=== PATIENT | female | born 1960 | race Caucasian/White ===

== ENCOUNTER → 2016-09-30 | Outpatient (CLI) | payer BC ==
[2016-09-30 17:50] LABS: Appearance,CSF Clear
[2016-10-01 14:58] LABS: Immunoglobulin G 861 mg/dL (700 - 1600)
[2016-10-03 16:23] LABS: Lyme Specimen Source Not Provided
== END | disposition home or self-care (01) ==
LOC: LABWHC1 13:20
PROVIDERS: ATTEND Psychiatry & Neurology Pain Medicine
DX: R90.82 White matter disease, unspecified (principal); M62.81 Muscle weakness (generalized)
CPT/HCPCS: 36415; 82040; 82042; 82784; 83873; 83916; 84157; 87476; 88108; 89050

== ENCOUNTER → 2016-10-22 | Outpatient (CLI) | payer BC ==
--- NOTE | 2016-10-22 19:21 | CT ---
EXAMINATION TYPE: CT lumbar spine wo con DATE OF EXAM: 10/22/2016 7:11 PM COMPARISON: NONE HISTORY: Severe low back pain and cramping CT DLP: 946 mGycm Automated exposure control for dose reduction was used. Unenhanced CT of the lumbar spine was performed. Bone and soft tissue window settings are submitted as well as coronal and sagittal reconstructions. Vertebra have normal alignment. Disc spaces are fairly normal. There is mild spurring anteriorly thro ughout the lumbar spine. There is no paraspinal mass. Posterior elements are intact. The sacroiliac j oints appear normal. I see no bony destructive process. There is no sign of spinal stenosis. There is a small posterior disc bulge at L5-S1. IMPRESSION: Mild degenerative hypertrophic changes without significant disc space narrowing. Small posterior L5-S 1 disc bulge. No fracture. No spinal stenosis.
== END | disposition home or self-care (01) ==
LOC: RADCTMAIN 18:47
PROVIDERS: ATTEND Family Medicine
DX: M51.27 Other intervertebral disc displacement, lumbosacral region (principal); M47.816 Spondylosis without myelopathy or radiculopathy, lumbar region
CPT/HCPCS: 72131

== ENCOUNTER → 2016-12-03 | Outpatient (CLI) | payer BC ==
[2016-12-03 19:55] LABS: Blood Urea Nitrogen 17 mg/dL (7-17); Non-African American GFR(MDRD) 58 (>60 ml/min/1.73 sqM)
--- NOTE | 2016-12-03 22:28 | MR ---
EXAMINATION TYPE: MR cspine/tspine wo/w con DATE OF EXAM: 12/03/2016 COMPARISON: NONE HISTORY: Known diagnosis of multiple sclerosis and white matter changes per order. Bulging disc per p atient. TECHNIQUE: Multiplanar, multisequence images of the cervical and thoracic spine are performed without and with I V contrast, utilizing 15 mL intravenous MultiHance . Demyelinating disease protocol with additional P D sagittal sequence of cervical spine acquired. FINDINGS: C-SPINE: Sagittal images of the cervical spine show the craniocervical junction to appear within normal limits . The cervical and upper thoracic spinal cord is normal in course, caliber, and signal. Vertebral a lignment is anatomic. The vertebral body and intravertebral disk heights are normal. No large kitchen helper ior disc herniations are seen on sagittal images. No significant spurring is present. The bone marrow signal intensity is within normal limits. No abnormal postcontrast enhancement is noted. Axial images show the C2-C3, C3-C4, C4-C5 levels all to appear within normal limits. Axial images at C5-C6 level show broad-based posterior disc protrusion with uncovertebral facet degen erative changes bilaterally. There is effacement of the anterior thecal sac. There is mild to moderat e left and mild right-sided neural foraminal narrowing at this level identified. Axial images at C6-C7 level and C7-T1 level are within normal limits. IMPRESSION: No evidence of demyelinating disease involvement in the cervical spine. Some degenerative change C5-C6 level otherwise unremarkable study T-SPINE: FINDINGS: Spinal cord shows normal caliber and signal as it courses the thoracic spine. Vertebral b germania heights are satisfactory. Exaggerated thoracic kyphosis is present. Disc space heights are fairly well-maintained. No large posterior disc herniations are seen on sagittal images. There is mild to m oderate multilevel anterior spurring most prominent in the mid thoracic spine. Bone marrow signal int ensity is maintained. No abnormal postcontrast enhancement is seen. Review of the axial images shows no significant spinal canal stenosis or neural foraminal narrowing a t any thoracic level. There is slight prominence of central spinal canal or small syrinx in lower th oracic spine from roughly T10-T11 disc space level on axial image 9 to superior T12 level on axial im age 4. There is 8 mm nodular thickening crux left adrenal gland on axial image 2. A few enhancing tho racolumbar nerve roots are identified in the lower axial images, nonspecific finding. IMPRESSION: No evidence of demyelinating disease involvement in the thoracic spine. There is short se gment central canal prominence or small syrinx in the lower thoracic spine. There is mild to moderat e multilevel anterior spurring in the mid thoracic spine with exaggerated thoracic kyphosis noted.
== END | disposition home or self-care (01) ==
LOC: RADMRIMAIN 19:17
PROVIDERS: ATTEND Psychiatry & Neurology Pain Medicine
DX: M47.812 Spondylosis without myelopathy or radiculopathy, cervical region (principal); M40.294 Other kyphosis, thoracic region; M46.04 Spinal enthesopathy, thoracic region; R90.82 White matter disease, unspecified
CPT/HCPCS: 82565; 84520; 72156; 72157; A9577

== ENCOUNTER → 2017-08-12 | Outpatient (CLI) | payer BC ==
--- NOTE | 2017-08-16 09:01 | MM ---
Reason for exam: screening (asymptomatic). Last mammogram was performed 1 year and 5 months ago. History: Patient is postmenopausal. Family history of breast cancer in maternal grandmother. Physical Findings: A clinical breast exam by your physician is recommended on an annual basis and results should be correlated with mammographic findings. MG Screening Mammo w CAD Bilateral CC and MLO view(s) were taken. Prior study comparison: March 26, 2016, bilateral MG screening mammo w CAD. April 02, 2014, bilateral MG screening mammo w CAD. There are scattered fibroglandular densities. No significant changes when compared with prior studies. ASSESSMENT: Negative, BI-RAD 1 RECOMMENDATION: Routine screening mammogram of both breasts in 1 year.
== END | disposition home or self-care (01) ==
LOC: RADMAMWWP 16:31
PROVIDERS: ATTEND Family Medicine
DX: Z12.31 Encounter for screening mammogram for malignant neoplasm of breast (principal)
CPT/HCPCS: 77067

== ENCOUNTER → 2018-11-09 | Outpatient (CLI) | payer BC ==
--- NOTE | 2018-11-13 08:34 | MM ---
Reason for exam: screening (asymptomatic). Last mammogram was performed 1 year and 3 months ago. History: Patient is postmenopausal. Family history of breast cancer in maternal grandmother and breast cancer in sister at age 51. Physical Findings: A clinical breast exam by your physician is recommended on an annual basis and results should be correlated with mammographic findings. MG 3D Screening Mammo W/Cad Bilateral CC and MLO view(s) were taken. Prior study comparison: August 12, 2017, bilateral MG screening mammo w CAD. March 26, 2016, bilateral MG screening mammo w CAD. There are scattered fibroglandular densities. No significant changes when compared with prior studies. ASSESSMENT: Benign, BI-RAD 2 RECOMMENDATION: Routine screening mammogram of both breasts in 1 year.
== END | disposition home or self-care (01) ==
LOC: RADMAMWWP 11:37
PROVIDERS: ATTEND Family Medicine
DX: Z12.31 Encounter for screening mammogram for malignant neoplasm of breast (principal)
CPT/HCPCS: 77063; 77067

== ENCOUNTER 2019-10-22 02:42 | Emergency (ER) | payer BC ==
[2019-10-22 02:49] VITALS: RESP 18; TEMP 98
[2019-10-22] MEDS ORDERED: MAG HYDROX/AL HYDROX/SIMETH 30 ML, HYOSCYAMINE ELIXIR 10 ML, LIDOCAINE VISCOUS 2% 10 ML PO STA ×3 (02:59)
--- NOTE | 2019-10-22 03:02 | ED ---
Abdominal Pain HPI - General Chief Complaint: Abdominal Pain Stated Complaint: abd pain Time Seen by Provider: 10/22/19 02:44 Source: patient, EMS Mode of arrival: EMS Limitations: no limitations - History of Present Illness Initial Comments: This patient is a 59-year-old woman who presents to be evaluated for epigastric pain radiating to her back. The patient states that she had been drinking some water and states that she was drinking much faster than usual and she noticed that she felt that feeling like a bubble in her epigastric area which progressed into a cramping and it felt like it was going to her back. She states the pain seems to come and go in waves. When it did not resolve she was concerned and felt she should be evaluated in the emergency department. No associated symptoms. MD Complaint: abdominal pain -: hour(s) Location: epigastric Radiation: back Migration to: no migration Severity: moderate Quality: cramping Consistency: colicky Improves With: nothing Worsens With: nothing Associated Symptoms: denies other symptoms - Related Data Home Medications Medication Instructions Recorded Confirmed Omeprazole 20 mg PO DAILY 10/04/13 10/22/19 metFORMIN HCL [Glucophage] 500 mg PO BID 10/04/13 10/22/19 sitaGLIPtin PHOSPHATE [Januvia] 100 mg PO DAILY 10/04/13 10/22/19 Atorvastatin [Lipitor] 20 mg PO DAILY 10/22/19 10/22/19 Clopidogrel Bisulfate [Plavix] 75 mg PO DAILY 10/22/19 10/22/19 Allergies Allergy/AdvReac Type Severity Reaction Status Date / Time Penicillins Allergy Rash/Hives Verified 10/22/19 02:49 Sulfa (Sulfonamide Allergy Rash/Hives Verified 10/22/19 02:49 Antibiotics) LEVAQUIN Allergy Rash/Hives Uncoded 10/22/19 02:49 Review of Systems ROS Statement: Those systems with pertinent positive or pertinent negative responses have been documented in the HPI. ROS Other: All systems not noted in ROS Statement are negative. Constitutional: Denies: fever, chills Respiratory: Denies: cough, dyspnea Cardiovascular: Denies: chest pain, palpitations, edema, syncope Gastrointestinal: Reports: as per HPI, abdominal pain. Denies: nausea, vomiting, diarrhea Genitourinary: Denies: dysuria, hematuria Musculoskeletal: Denies: back pain Skin: Denies: rash Neurological: Denies: headache, weakness, numbness Past Medical History Past Medical History: Diabetes Mellitus, GERD/Reflux, Hyperlipidemia Additional Past Medical History / Comment(s): stroke in december History of Any Multi-Drug Resistant Organisms: None Reported Past Surgical History: Cholecystectomy, Heart Catheterization, Tonsillectomy, Tubal Ligation, Uterine Ablation Additional Past Surgical History / Comment(s): Cardiac cath 12/2012. 2- D&C Past Psychological History: No Psychological Hx Reported Smoking Status: Never smoker Past Alcohol Use History: None Reported Past Drug Use History: None Reported General Exam Limitations: no limitations General appearance: alert, in no apparent distress Head exam: Present: atraumatic, normocephalic Eye exam: Present: normal appearance. Absent: scleral icterus, conjunctival injection ENT exam: Present: normal oropharynx Respiratory exam: Present: normal lung sounds bilaterally. Absent: respiratory distress, wheezes, rales, rhonchi, stridor Cardiovascular Exam: Present: regular rate, normal rhythm, normal heart sounds. Absent: systolic murmur, diastolic murmur, rubs, gallop GI/Abdominal exam: Present: soft. Absent: distended, tenderness, guarding, rebound, rigid, mass, pulsatile mass, hernia Extremities exam: Present: normal inspection, normal capillary refill. Absent: pedal edema, calf tenderness Back exam: Present: normal inspection Neurological exam: Present: alert Skin exam: Present: warm, dry, intact, normal color. Absent: rash Course Vital Signs 10/22/19 10/22/19 02:44 05:00 Temperature 98 F Pulse Rate 73 83 Respiratory 18 18 Rate Blood Pressure 142/72 114/71 O2 Sat by Pulse 99 98 Oximetry Medical Decision Making - Lab Data Result diagrams: 10/22/19 03:04 10/22/19 03:04 Lab Results 10/22/19 10/22/19 10/22/19 Range/Units 03:04 03:04 03:04 WBC 7.6 (3.8-10.6) k/uL RBC 4.56 (3.80-5.40) m/uL Hgb 14.2 (11.4-16.0) gm/dL Hct 41.8 (34.0-46.0) % MCV 91.6 (80.0-100.0) fL MCH 31.2 (25.0-35.0) pg MCHC 34.1 (31.0-37.0) g/dL RDW 12.7 (11.5-15.5) % Plt Count 274 (150-450) k/uL Neutrophils % 47 % Lymphocytes % 43 % Monocytes % 5 % Eosinophils % 2 % Basophils % 1 % Neutrophils # 3.6 (1.3-7.7) k/uL Lymphocytes # 3.3 (1.0-4.8) k/uL Monocytes # 0.4 (0-1.0) k/uL Eosinophils # 0.1 (0-0.7) k/uL Basophils # 0.0 (0-0.2) k/uL D-Dimer 0.73 H (<0.60) mg/L FEU Sodium 139 (137-145) mmol/L Potassium 4.0 (3.5-5.1) mmol/L Chloride 107 (98-107) mmol/L Carbon Dioxide 21 L (22-30) mmol/L Anion Gap 11 mmol/L BUN 7 (7-17) mg/dL Creatinine 0.43 L (0.52-1.04) mg/dL Est GFR (CKD-EPI)AfAm >90 (>60 ml/min/1.73 sqM) Est GFR (CKD-EPI)NonAf >90 (>60 ml/min/1.73 sqM) Glucose 98 (74-99) mg/dL Calcium 10.5 H (8.4-10.2) mg/dL Total Bilirubin 0.8 (0.2-1.3) mg/dL AST 27 (14-36) U/L ALT 25 (4-34) U/L Alkaline Phosphatase 63 (38-126) U/L Troponin I (0.000-0.034) ng/mL Total Protein 7.0 (6.3-8.2) g/dL Albumin 4.6 (3.5-5.0) g/dL Amylase 51 (30-110) U/L Lipase 103 (23-300) U/L // Range/Units 03:04 WBC (3.8-10.6) k/uL RBC (3.80-5.40) m/uL Hgb (11.4-16.0) gm/dL Hct (34.0-46.0) % MCV (80.0-100.0) fL MCH (25.0-35.0) pg MCHC (31.0-37.0) g/dL RDW (11.5-15.5) % Plt Count (150-450) k/uL Neutrophils % % Lymphocytes % % Monocytes % % Eosinophils % % Basophils % % Neutrophils # (1.3-7.7) k/uL Lymphocytes # (1.0-4.8) k/uL Monocytes # (0-1.0) k/uL Eosinophils # (0-0.7) k/uL Basophils # (0-0.2) k/uL D-Dimer (<0.60) mg/L FEU Sodium (137-145) mmol/L Potassium (3.5-5.1) mmol/L Chloride (98-107) mmol/L Carbon Dioxide (22-30) mmol/L Anion Gap mmol/L BUN (7-17) mg/dL Creatinine (0.52-1.04) mg/dL Est GFR (CKD-EPI)AfAm (>60 ml/min/1.73 sqM) Est GFR (CKD-EPI)NonAf (>60 ml/min/1.73 sqM) Glucose (74-99) mg/dL Calcium (8.4-10.2) mg/dL Total Bilirubin (0.2-1.3) mg/dL AST (14-36) U/L ALT (4-34) U/L Alkaline Phosphatase (38-126) U/L Troponin I <0.012 (0.000-0.034) ng/mL Total Protein (6.3-8.2) g/dL Albumin (3.5-5.0) g/dL Amylase (30-110) U/L Lipase (23-300) U/L - EKG Data -: EKG Interpreted by [facility] EKG shows normal: sinus rhythm, axis (Normal), intervals (Normal), QRS complexes (Low-voltage), ST-T waves (Normal) Rate: normal (Rate 63 bpm) Disposition Clinical Impression: Chest pain Disposition: HOME SELF-CARE Condition: Good Instructions (If sedation given, give patient instructions): Chest Pain (ED) Is patient prescribed a controlled substance at d/c from ED?: No Referrals: Yuliana Moore DO [Primary Care Provider] - 1-2 days
[2019-10-22 03:14] LABS: Basophils % (A) 1 %; Eosinophils # (A) 0.1 k/uL (0-0.7); Eosinophils % (A) 2 %; HCT 41.8 % (34.0-46.0); HGB 14.2 gm/dL (11.4-16.0); Lymphocytes # (A) 3.3 k/uL (1.0-4.8); Lymphocytes % (A) 43 %; MCH 31.2 pg (25.0-35.0); MCHC 34.1 g/dL (31.0-37.0); MCV 91.6 fL (80.0-100.0); Mean Platelet Volume 7.3; Monocytes # (A) 0.4 k/uL (0-1.0); Monocytes % (A) 5 %; Neutrophils # (A) 3.6 k/uL (1.3-7.7); Neutrophils % (A) 47 %; Platelet Count 274 k/uL (150-450); RBC 4.56 m/uL (3.80-5.40); RDW 12.7 % (11.5-15.5); WBC 7.6 k/uL (3.8-10.6)
[2019-10-22 03:21] LABS: ALT 25 U/L (4-34); AST 27 U/L (14-36); African American GFR (CKD) >90 (>60 ml/min/1.73 sqM); Albumin 4.6 g/dL (3.5-5.0); Alkaline Phosphatase 63 U/L (38-126); Amylase 51 U/L (30-110); Anion Gap 11 mmol/L; Blood Urea Nitrogen 7 mg/dL (7-17); Calcium 10.5 mg/dL (8.4-10.2); Carbon Dioxide 21 mmol/L (22-30); Chloride 107 mmol/L (98-107); Glucose 98 mg/dL (74-99); Non-African American GFR(CKD) >90 (>60 ml/min/1.73 sqM); Sodium 139 mmol/L (137-145); Total Bilirubin 0.8 mg/dL (0.2-1.3)
--- NOTE | 2019-10-22 04:38 | CT ---
EXAMINATION TYPE: CT chest angio for PE DATE OF EXAM: 10/22/2019 COMPARISON: 01/17/2013 HISTORY: ELEVATED D-DIMER CT DLP: 241.9 mGycm Automated exposure control for dose reduction was used. CONTRAST: Performed with IV Contrast, patient injected with 65 mL of Isovue 370. There are 3-D post processed images. The lungs are clear of infiltrate. There is no pleural effusion. There is no pericardial effusion. He art size is normal. There are no hilar masses. There is no mediastinal adenopathy. Thoracic aorta is intact. There is no aneurysm or dissection. There is normal contrast opacification of the pulmonary arteries. There are no filling defects. There is degenerative spurring in the thoracic spine. There is no compression fracture. Bony thorax i s intact. Upper abdominal soft tissues are intact. IMPRESSION: No evidence of pulmonary embolism. No active cardiopulmonary disease. No adverse change compared to o ld exam.
[2019-10-22 05:01] VITALS: BP 114/71; PULSE 83
== END 2019-10-22 05:23 | disposition home or self-care (01) ==
LOC: EC 02:42
DX: R07.9 Chest pain, unspecified (principal); E11.9 Type 2 diabetes mellitus without complications; K21.9 Gastro-esophageal reflux disease without esophagitis; E78.5 Hyperlipidemia, unspecified; Z79.84 Long term (current) use of oral hypoglycemic drugs; Z79.899 Other long term (current) drug therapy; Z79.02 Long term (current) use of antithrombotics/antiplatelets; Z88.0 Allergy status to penicillin; Z88.2 Allergy status to sulfonamides; Z88.1 Allergy status to other antibiotic agents; Z95.5 Presence of coronary angioplasty implant and graft; Z90.49 Acquired absence of other specified parts of digestive tract; Z98.890 Other specified postprocedural states
CPT/HCPCS: 36415; 93005; 85379; 80053; 82150; 83690; 84484; 85025; 71275; 99285; Q9967

== ENCOUNTER → 2020-01-14 | Outpatient (CLI) | payer BC ==
[2020-01-14 20:58] LABS: CSF Tube Number 4
[2020-01-14 20:59] LABS: Appearance,CSF Clear; CSF Tube Volume 3; Nucleated Cells, CSF 1 u/L (0-5); Red Blood Cell,CSF 0 u/L (0-10)
[2020-01-14 21:08] LABS: Total Protein,CSF 155 mg/dL (12-60)
== END | disposition home or self-care (01) ==
LOC: LABWHC1 10:09
PROVIDERS: ATTEND Psychiatry & Neurology Pain Medicine
DX: R90.82 White matter disease, unspecified (principal)
CPT/HCPCS: 36415; 82040; 82042; 82784; 83873; 83916; 84157; 87801; 89050

== ENCOUNTER → 2020-04-01 | Outpatient (CLI) | payer BC ==
[2020-04-01 14:57] LABS: Basophils # (A) 0.1 k/uL (0-0.2); Basophils % (A) 1 %; Eosinophils # (A) 0.2 k/uL (0-0.7); Eosinophils % (A) 2 %; HGB 13.9 gm/dL (11.4-16.0); Lymphocytes # (A) 2.5 k/uL (1.0-4.8); Lymphocytes % (A) 30 %; MCH 29.7 pg (25.0-35.0); MCHC 32.2 g/dL (31.0-37.0); MCV 92.1 fL (80.0-100.0); Mean Platelet Volume 7.4; Monocytes # (A) 0.3 k/uL (0-1.0); Monocytes % (A) 4 %; Neutrophils # (A) 5.1 k/uL (1.3-7.7); Neutrophils % (A) 61 %; Platelet Count 282 k/uL (150-450); RBC 4.67 m/uL (3.80-5.40); RDW 13.2 % (11.5-15.5); WBC 8.3 k/uL (3.8-10.6)
[2020-04-01 19:41] LABS: African American GFR (CKD) 115.6 (60.0-200.0); Albumin 4.8 g/dL (3.80-4.90); Albumin/Globulin Ratio 2.4 (1.60-3.17); Anion Gap 8.6 mmol/L (4.00-12.00); BUN/Creat Ratio 11.67 Ratio (12.00-20.00); Calcium 10.4 mg/dL (8.7-10.3); Carbon Dioxide 29.4 mmol/L (21.6-31.8); Non-African American GFR(CKD) 99.8 (60.0-200.0); Potassium 3.9 mmol/L (3.5-5.5); Total Bilirubin 0.8 mg/dL (0.2-1.2); Total Protein 6.8 g/dL (6.2-8.2)
[2020-04-01 19:49] LABS: T4, Free (Free Thyroxine) 1.2 ng/dL (0.80-1.80)
[2020-04-01 20:26] LABS: Hepatitis B Core IgM Non-Reactive (Non-Reactive); Hepatitis B Surface AB- Quant 3.5 mIU/mL; Hepatitis B Surface Antibody Non-Reactive (Non-Reactive); Hepatitis B Surface Antigen Non-Reactive (Non-Reactive)
[2020-04-01 20:42] LABS: Hemoglobin A1C 6.9 % (4.0-6.0)
[2020-04-01 21:27] LABS: HIV 2 AB Non-Reactive (Non-Reactive); HIV AB P24 Non-Reactive (Non-Reactive); HIV P24 AG Non-Reactive (Non-Reactive)
== END | disposition home or self-care (01) ==
LOC: LABWHC1 13:17
PROVIDERS: ATTEND Psychiatry & Neurology Pain Medicine
DX: Z51.81 Encounter for therapeutic drug level monitoring (principal); G35 Multiple sclerosis
CPT/HCPCS: 36415; 80053; 82306; 82607; 82746; 83036; 84207; 84425; 84439; 84443; 84481; 84591; 85025; 86704; 86705; 86706; 86787; 87340; 87390

== ENCOUNTER → 2020-05-01 | Outpatient (CLI) | payer BC ==
--- NOTE | 2020-05-05 14:05 | MM ---
Reason for exam: screening (asymptomatic). Last mammogram was performed 1 year and 6 months ago. History: Patient is postmenopausal. Family history of breast cancer in maternal grandmother and breast cancer in sister at age 51. Physical Findings: A clinical breast exam by your physician is recommended on an annual basis and results should be correlated with mammographic findings. MG 3D Screening Mammo W/Cad Bilateral CC and MLO view(s) were taken. Prior study comparison: November 09, 2018, bilateral MG 3d screening mammo w/cad. August 12, 2017, bilateral MG screening mammo w CAD. The breast tissue is heterogeneously dense. This may lower the sensitivity of mammography. There are benign appearing round calcifications bilaterally. There is no discrete abnormality. ASSESSMENT: Benign, BI-RAD 2 RECOMMENDATION: Routine screening mammogram of both breasts in 1 year.
== END | disposition home or self-care (01) ==
LOC: RADMAMWWP 09:10
PROVIDERS: ATTEND Family Medicine
DX: Z12.31 Encounter for screening mammogram for malignant neoplasm of breast (principal)
CPT/HCPCS: 77063; 77067

== ENCOUNTER → 2021-09-01 | Outpatient (CLI) | payer BC ==
--- NOTE | 2021-09-02 11:45 | MM ---
Reason for exam: screening (asymptomatic). Last mammogram was performed 1 year and 4 months ago. History: Patient is postmenopausal. Family history of breast cancer in maternal grandmother and breast cancer in sister at age 51. Physical Findings: A clinical breast exam by your physician is recommended on an annual basis and results should be correlated with mammographic findings. MG 3D Screening Mammo W/Cad Bilateral CC and MLO view(s) were taken. Prior study comparison: May 01, 2020, bilateral MG 3d screening mammo w/cad. November 09, 2018, bilateral MG 3d screening mammo w/cad. The breast tissue is heterogeneously dense. This may lower the sensitivity of mammography. Stable benign calcifications. There is no discrete abnormality. No significant changes when compared with prior studies. ASSESSMENT: Benign, BI-RAD 2 RECOMMENDATION: Routine screening mammogram of both breasts in 1 year.
== END | disposition home or self-care (01) ==
LOC: RADMAMWWP 06:56
PROVIDERS: ATTEND Family Medicine
DX: Z12.31 Encounter for screening mammogram for malignant neoplasm of breast (principal); Z78.0 Asymptomatic menopausal state; Z80.3 Family history of malignant neoplasm of breast
CPT/HCPCS: 77063; 77067

== ENCOUNTER → 2021-11-21 | Outpatient (CLI) | payer BC ==
[2021-11-21 11:45] LABS: Basophils # (A) 0.06 X 10*3/uL (0.00-0.10); Eosinophils # (A) 0.28 X 10*3/uL (0.04-0.35); Eosinophils % (A) 4.5 %; HCT 45.5 % (37.2-46.3); HGB 14.4 g/dL (12.0-15.0); Immature Grans, Automated 0.5 %; Lymphocytes % (A) 20.9 %; MCH 28.7 pg (27.0-32.0); MCHC 31.6 g/dL (32.0-37.0); MCV 90.8 fL (80.0-97.0); Mean Platelet Volume 10.4 fL (9.5-12.2); Monocytes # (A) 0.54 X 10*3/uL (0.20-1.00); Monocytes % (A) 8.7 %; NRBC Per 100 WBC 0 /100 WBCS (0.0-0.0); Neutrophils % (A) 64.4 %; Platelet Count 294 X 10*3/uL (140-440); RBC 5.01 X 10*6/uL (4.10-5.20); RDW 13.2 % (11.5-14.5); WBC 6.21 X 10*3/uL (4.50-10.00)
[2021-11-21 16:09] LABS: ALT 23 U/L (8-44); AST 19 U/L (13-35); African American GFR (CKD) 109.1 (60.0-200.0); Albumin 4.9 g/dL (3.8-4.9); Albumin/Globulin Ratio 2.13 (1.60-3.17); Alkaline Phosphatase 96 U/L (41-126); BUN/Creat Ratio 11.57 Ratio (12.00-20.00); Blood Urea Nitrogen 8.1 mg/dL (9.0-27.0); Calcium 10.4 mg/dL (8.7-10.3); Carbon Dioxide 26.7 mmol/L (20.0-27.5); Chloride 106 mmol/L (96-109); Globulin 2.3 g/dL (1.6-3.3); Glucose 147 mg/dL (70-110); LDL Cholesterol,Calculated 87.8 mg/dL (0.0-131.0); Magnesium 1.8 mg/dL (1.5-2.4); Non-African American GFR(CKD) 94.2 (60.0-200.0); Potassium 4.4 mmol/L (3.5-5.5); Sodium 146 mmol/L (135-145); Total Protein 7.2 g/dL (6.2-8.2); VLDL Calculation 18.96 mg/dL (5.00-40.00)
[2021-11-21 21:01] LABS: Microalbumin Creatinine Ratio <30 mg/g Creat (0-30); Urine Creatinine 76.9 mg/dL (28.0-217.0)
== END | disposition home or self-care (01) ==
LOC: LABWHC1 08:22
PROVIDERS: ATTEND Nurse Practitioner Acute Care
DX: E11.9 Type 2 diabetes mellitus without complications (principal); K21.9 Gastro-esophageal reflux disease without esophagitis; E78.49 Other hyperlipidemia; E55.9 Vitamin D deficiency, unspecified; E53.9 Vitamin B deficiency, unspecified
CPT/HCPCS: 36415; 80053; 80061; 82043; 82306; 82570; 82607; 83735; 84207; 85025

== ENCOUNTER 2022-07-25 13:49 | Observation (INO) | payer BC ==
[2022-07-25] MEDS ORDERED: ASPIRIN 81 MG PO STA (14:03)
[2022-07-25] MEDS ORDERED: NITROGLYCERIN SL TABS 0.4 MG TAB SUBLINGUAL STA ×3 (14:03)
--- NOTE | 2022-07-25 14:07 | ED ---
General Adult HPI - General Chief complaint: Chest Pain Stated complaint: Chest Pain Time Seen by Provider: 07/25/22 13:57 Source: patient, RN notes reviewed Mode of arrival: wheelchair Limitations: no limitations - History of Present Illness Initial comments: Patient is a pleasant 62-year-old female presenting to the emergency department with concerns with chest tightness. Onset of symptoms was this morning. Discomfort is rated 7/10. No radiation. Patient does have some associated lightheadedness. Patient also has mild nausea. No dyspnea. No diaphoresis. Patient does have history of similar symptoms previously without definitive diagnosis, last was approximately a year and a half ago. No leg pain or leg swelling. - Related Data Home Medications Medication Instructions Recorded Confirmed Omeprazole 20 mg PO DAILY 10/04/13 10/22/19 metFORMIN HCL [Glucophage] 500 mg PO BID 10/04/13 10/22/19 sitaGLIPtin PHOSPHATE [Januvia] 100 mg PO DAILY 10/04/13 10/22/19 Atorvastatin [Lipitor] 20 mg PO DAILY 10/22/19 10/22/19 Clopidogrel Bisulfate [Plavix] 75 mg PO DAILY 10/22/19 10/22/19 Allergies Allergy/AdvReac Type Severity Reaction Status Date / Time Penicillins Allergy Rash/Hives Verified 07/25/22 13:54 Sulfa (Sulfonamide Allergy Rash/Hives Verified 07/25/22 13:54 Antibiotics) LEVAQUIN Allergy Rash/Hives Uncoded 07/25/22 13:54 Review of Systems ROS Statement: Those systems with pertinent positive or pertinent negative responses have been documented in the HPI. ROS Other: All systems not noted in ROS Statement are negative. Constitutional: Denies: fever Eyes: Denies: eye pain ENT: Denies: ear pain Respiratory: Denies: cough, dyspnea Cardiovascular: Reports: as per HPI, chest pain Endocrine: Denies: fatigue Gastrointestinal: Reports: as per HPI. Denies: abdominal pain, vomiting Genitourinary: Denies: dysuria Musculoskeletal: Denies: back pain Skin: Denies: rash Neurological: Denies: headache, weakness Past Medical History Past Medical History: Diabetes Mellitus, GERD/Reflux, Hyperlipidemia, Neurologic Disorder Additional Past Medical History / Comment(s): stroke in december, History of Any Multi-Drug Resistant Organisms: None Reported Past Surgical History: Cholecystectomy, Heart Catheterization, Tonsillectomy, Tubal Ligation, Uterine Ablation Additional Past Surgical History / Comment(s): Cardiac cath 12/2012. 2- D&C Past Psychological History: No Psychological Hx Reported Smoking Status: Never smoker Past Alcohol Use History: None Reported Past Drug Use History: None Reported General Exam Limitations: no limitations General appearance: alert, in no apparent distress Head exam: Present: atraumatic, normocephalic Eye exam: Present: normal appearance Neck exam: Present: normal inspection Respiratory exam: Present: normal lung sounds bilaterally. Absent: respiratory distress, chest wall tenderness Cardiovascular Exam: Present: regular rate, normal rhythm Expanded Peripheral pulses: 2+: Radial (R), Radial (L), Dorsalis Pedis (R), Dorsalis Pedis (L) GI/Abdominal exam: Present: soft. Absent: tenderness Extremities exam: Present: normal inspection. Absent: pedal edema, calf tenderness Neurological exam: Present: alert Psychiatric exam: Present: normal affect, normal mood Skin exam: Present: normal color Course Vital Signs 07/25/22 13:52 Temperature 98.0 F Pulse Rate 59 L Respiratory 20 Rate Blood Pressure 160/70 O2 Sat by Pulse 96 Oximetry EKG Findings - EKG Results: EKG: interpreted by ERMD (Low QRS.), sinus rhythm, normal axis, normal ST/T EKG shows: bradycardia Medical Decision Making - Medical Decision Making Was pt. sent in by a medical professional or institution (JARON Cruz, FLIGHT ENGINEER INSTRUCTOR, urgent care, hospital, or senior care...) When possible be specific @ -No Did you speak to anyone other than the patient for history (EMS, parent, family, police, friend...)? What history was obtained from this source @ -Family is present and helps confirm history Did you review nursing and triage notes (agree or disagree)? Why? @ -I reviewed and agree with nursing and triage notes Were old charts reviewed (outside hosp., previous admission, EMS record, old EKG, old radiological studies, urgent care reports/EKG's, senior care records)? Report findings @ -No old charts were reviewed Differential Diagnosis (chest pain, altered mental status, abdominal pain women, abdominal pain men, vaginal bleeding, weakness, fever, dyspnea, syncope, headache, dizziness, GI bleed, back pain, seizure, CVA, palpatations, mental health)? @ -Differential Chest Pain: Stable Angina, Unstable Angina, STEMI, NSTEMI Aortic Dissection, Pneumothorax, Musculoskeletal, Esophageal Spasm GERD, Cholecystitis, Pancreatitis, Zoster, this is not meant to be an all-inclusive list. EKG interpreted by me (3pts min.). @ -As above X-rays interpreted by me (1pt min.). @ -Chest x-ray shows no acute process CT interpreted by me (1pt min.). @ -None done U/S interpreted by me (1pt. min.). @ -None done What testing was considered but not performed or refused? (CT, X-rays, U/S, labs)? Why? @ -None What meds were considered but not given or refused? Why? @ -None Did you discuss the management of the patient with other professionals (prof evan i.e. , PA, FLIGHT ENGINEER INSTRUCTOR, lab, RT, psych nurse, social media marketing analyst, soldering machine feeder, teacher, senior escrow officer, case repairer)? Give summary @ -Dr. Hector has been paged for admission, covering Dr. Minaya, who admits for Dr. Tovar Was smoking cessation discussed for >3mins.? @ -No Was critical care preformed (if so, how long)? @ -No Were there social determinants of health that impacted care today? How? (Homelessness, low income, unemployed, alcoholism, drug addiction, transportation, low edu. Level, literacy, decrease access to med. care, intermediate, rehab)? @ -No Was there de-escalation of care discussed even if they declined (Discuss DNR or withdrawal of care, Hospice)? DNR status @ -No What co-morbidities impacted this encounter? (DM, HTN, Smoking, COPD, CAD, Cancer, CVA, ARF, Chemo, Hep., AIDS, mental health diagnosis, sleep apnea, morbid obesity)? @ -None Was patient admitted / discharged? Hospital course, mention meds given and route, prescriptions, significant lab abnormalities, going to OR and other pertinent info. @ -Patient reevaluated and feels much better following nitroglycerin. Patient states she was certainly feel a little bit better just prior to this. Patient and family updated on results and plan. Patient will be admitted. Orders written. Undiagnosed new problem with uncertain prognosis? @ -No Drug Therapy requiring intensive monitoring for toxicity (Heparin, Nitro, I nsulin, Cardizem)? @ -No Were any procedures done? @ -No Diagnosis/symptom? @ -Chest pain Acute, or Chronic, or Acute on Chronic? @ -Acute Uncomplicated (without systemic symptoms) or Complicated (systemic symptoms)? @ -default Side effects of treatment? @ -No Exacerbation, Progression, or Severe Exacerbation? @ -No Poses a threat to life or bodily function? How? (Chest pain, [place], [place], pneumonia, PE, COPD, DKA, ARF, appy, cholecystitis, CVA, Diverticulitis, Homicidal, Suicidal, threat to staff... and all critical care pts) @ -No - Lab Data Result diagrams: 07/25/22 14:03 07/25/22 14:03 Lab Results 07/25/22 07/25/22 07/25/22 Range/Units 14:03 14:03 14:03 WBC 6.3 (3.8-10.6) k/uL RBC 4.73 (3.80-5.40) m/uL Hgb 14.2 (11.4-16.0) gm/dL Hct 41.3 (34.0-46.0) % MCV 87.3 (80.0-100.0) fL MCH 29.9 (25.0-35.0) pg MCHC 34.3 (31.0-37.0) g/dL RDW 13.5 (11.5-15.5) % Plt Count 238 (150-450) k/uL MPV 8.0 Neutrophils % 62 % Lymphocytes % 25 % Monocytes % 7 % Eosinophils % 3 % Basophils % 1 % Neutrophils # 3.9 (1.3-7.7) k/uL Lymphocytes # 1.6 (1.0-4.8) k/uL Monocytes # 0.4 (0-1.0) k/uL Eosinophils # 0.2 (0-0.7) k/uL Basophils # 0.0 (0-0.2) k/uL PT 9.4 (9.0-12.0) sec INR 0.9 (<1.2) APTT 23.1 (22.0-30.0) sec Sodium 142 (137-145) mmol/L Potassium 4.0 (3.5-5.1) mmol/L Chloride 107 (98-107) mmol/L Carbon Dioxide 26 (22-30) mmol/L Anion Gap 9 mmol/L BUN 7 (7-17) mg/dL Creatinine 0.48 L (0.52-1.04) mg/dL Est GFR (CKD-EPI)AfAm >90 (>60 ml/min/1.73 sqM) Est GFR (CKD-EPI)NonAf >90 (>60 ml/min/1.73 sqM) Glucose 122 H (74-99) mg/dL Calcium 9.7 (8.4-10.2) mg/dL Magnesium 1.8 (1.6-2.3) mg/dL Total Bilirubin 0.8 (0.2-1.3) mg/dL AST 25 (14-36) U/L ALT 32 (4-34) U/L Alkaline Phosphatase 82 (38-126) U/L Troponin I (0.000-0.034) ng/mL Total Protein 7.0 (6.3-8.2) g/dL Albumin 4.4 (3.5-5.0) g/dL 07/25/22 Range/Units 14:03 WBC (3.8-10.6) k/uL RBC (3.80-5.40) m/uL Hgb (11.4-16.0) gm/dL Hct (34.0-46.0) % MCV (80.0-100.0) fL MCH (25.0-35.0) pg MCHC (31.0-37.0) g/dL RDW (11.5-15.5) % Plt Count (150-450) k/uL MPV Neutrophils % % Lymphocytes % % Monocytes % % Eosinophils % % Basophils % % Neutrophils # (1.3-7.7) k/uL Lymphocytes # (1.0-4.8) k/uL Monocytes # (0-1.0) k/uL Eosinophils # (0-0.7) k/uL Basophils # (0-0.2) k/uL PT (9.0-12.0) sec INR (<1.2) APTT (22.0-30.0) sec Sodium (137-145) mmol/L Potassium (3.5-5.1) mmol/L Chloride (98-107) mmol/L Carbon Dioxide (22-30) mmol/L Anion Gap mmol/L BUN (7-17) mg/dL Creatinine (0.52-1.04) mg/dL Est GFR (CKD-EPI)AfAm (>60 ml/min/1.73 sqM) Est GFR (CKD-EPI)NonAf (>60 ml/min/1.73 sqM) Glucose (74-99) mg/dL Calcium (8.4-10.2) mg/dL Magnesium (1.6-2.3) mg/dL Total Bilirubin (0.2-1.3) mg/dL AST (14-36) U/L ALT (4-34) U/L Alkaline Phosphatase (38-126) U/L Troponin I <0.012 (0.000-0.034) ng/mL Total Protein (6.3-8.2) g/dL Albumin (3.5-5.0) g/dL Disposition Clinical Impression: Chest pain Disposition: ADMITTED IP TO THIS HOSP Is patient prescribed a controlled substance at d/c from ED?: No Referrals: Yuliana Moore DO [Primary Care Provider] - 1-2 days Time of Disposition: 15:54
--- NOTE | 2022-07-25 14:42 | XR ---
EXAMINATION TYPE: XR chest 2V DATE OF EXAM: 07/25/2022 COMPARISON: 10/04/2013 HISTORY: Chest pain TECHNIQUE: FINDINGS: Heart is normal. Lungs are clear. Diaphragm is normal. Bony thorax is intact. IMPRESSION: No active cardiopulmonary disease. Normal heart. No change.
[2022-07-25 14:54] LABS: Basophils % (A) 1 %; Eosinophils # (A) 0.2 k/uL (0-0.7); Eosinophils % (A) 3 %; HCT 41.3 % (34.0-46.0); HGB 14.2 gm/dL (11.4-16.0); Lymphocytes # (A) 1.6 k/uL (1.0-4.8); Lymphocytes % (A) 25 %; MCH 29.9 pg (25.0-35.0); MCHC 34.3 g/dL (31.0-37.0); MCV 87.3 fL (80.0-100.0); Monocytes # (A) 0.4 k/uL (0-1.0); Monocytes % (A) 7 %; Neutrophils # (A) 3.9 k/uL (1.3-7.7); Neutrophils % (A) 62 %; Platelet Count 238 k/uL (150-450); RBC 4.73 m/uL (3.80-5.40); RDW 13.5 % (11.5-15.5); WBC 6.3 k/uL (3.8-10.6)
[2022-07-25 15:09] LABS: ALT 32 U/L (4-34); AST 25 U/L (14-36); African American GFR (CKD) >90 (>60 ml/min/1.73 sqM); Albumin 4.4 g/dL (3.5-5.0); Alkaline Phosphatase 82 U/L (38-126); Anion Gap 9 mmol/L; Blood Urea Nitrogen 7 mg/dL (7-17); Calcium 9.7 mg/dL (8.4-10.2); Carbon Dioxide 26 mmol/L (22-30); Chloride 107 mmol/L (98-107); Glucose 122 mg/dL (74-99); INR 0.9 (<1.2); Magnesium 1.8 mg/dL (1.6-2.3); Non-African American GFR(CKD) >90 (>60 ml/min/1.73 sqM); Partial Thromboplastin Time 23.1 sec (22.0-30.0); Prothrombin Time 9.4 sec (9.0-12.0); Sodium 142 mmol/L (137-145); Total Bilirubin 0.8 mg/dL (0.2-1.3)
[2022-07-25] MEDS ORDERED: NITROGLYCERIN SL TABS 0.4 MG TAB SUBLINGUAL PRN (15:55)
[2022-07-25] MEDS ORDERED: BACLOFEN 10 MG TAB PO PRN (16:37)
[2022-07-25] MEDS ORDERED: DEXTROSE 50% SYRINGE 50 ML IVP PRN ×2 (16:38)
[2022-07-25] MEDS ORDERED: CYANOCOBALAMIN 500 MCG TAB PO SCH (17:00)
[2022-07-25] MEDS: NITROGLYCERIN OINT 1 INCH/GM PACKET TOPICAL SCH ×2 (17:02→23:42)
[2022-07-25 17:07] VITALS: RESP 16
[2022-07-25] MEDS: INSULIN ASPART (NovoLOG) 100 UNIT/ML VIAL SQ SCH ×2 (17:24→19:58)
[2022-07-25 17:33] LABS: Glucose,Whole Blood 99 mg/dL (70-110)
[2022-07-25 19:52] LABS: Glucose,Whole Blood 194 mg/dL (70-110)
[2022-07-25] MEDS: ASCORBIC ACID 500 MG TAB PO SCH (19:58)
[2022-07-25] MEDS ORDERED: ATORVASTATIN 20 MG TAB PO SCH (21:00)
[2022-07-26] MEDS: NITROGLYCERIN OINT 1 INCH/GM PACKET TOPICAL SCH ×2 (06:05→12:43)
[2022-07-26] MEDS: INSULIN ASPART (NovoLOG) 100 UNIT/ML VIAL SQ SCH ×2 (06:10→12:48)
[2022-07-26 06:11] LABS: Glucose,Whole Blood 148 mg/dL (70-110)
[2022-07-26] MEDS ORDERED: PANTOPRAZOLE 40 MG TABLET PO SCH (07:30)
[2022-07-26] MEDS ORDERED: REGADENOSON 0.4 MG/5 ML SYRINGE IV PRN (08:32)
[2022-07-26] MEDS ORDERED: CAFFEINE CITRATE 60 MG/3 ML VIAL IV PRN (08:32)
[2022-07-26] MEDS ORDERED: AMINOPHYLLINE 500 MG/20 ML VIAL IV PRN (08:32)
[2022-07-26] MEDS: ASCORBIC ACID 500 MG TAB PO SCH (08:51)
[2022-07-26] MEDS ORDERED: ASPIRIN 325 MG TAB PO SCH (09:00)
[2022-07-26] MEDS ORDERED: ASPIRIN 81 MG PO SCH (09:00)
[2022-07-26] MEDS ORDERED: VITAMIN D3 PO SCH (09:00)
[2022-07-26] MEDS ORDERED: VITAMIN E (DL,TOCOPHERYL ACET) 400 UNIT (180 MG) CAP PO SCH (09:00)
[2022-07-26 09:27] LABS: Chol/HDL Ratio 2.37 Ratio; LDL Cholesterol,Calculated 86.1 mg/dL (0.0-131.0); VLDL Calculation 18.38 mg/dL (5.00-40.00)
--- NOTE | 2022-07-26 10:03 | P.CRDCN ---
History of Present Illness Consult date: 07/26/22 Consult reason: chest pain Chief complaint: chest pain History of present illness: History of present illness: Patient is a pleasant 62-year-old female with significant past medical history of diabetes type 2, hyperlipidemia, multiple sclerosis who presented to the emergency department with complaints of chest tightness. She reports approximately 10 AM yesterday she was watching TV and doing some chores when she developed chest tightness, she also felt lightheaded and nauseous. Denies any shortness of breath or diaphoresis. The symptoms did not improve so she came to the emergency department, she reports feeling better after receiving nitro. She denies any symptoms currently. She had a prior episode of similar pain approximately 4 years ago and was told she had esophageal spasms. She does not follow with manager social work. Troponins negative 3. Hgb A1C 7.8. LDL 86, HDL 76. EKG shows sinus bradycardia cardia, no significant ST or T wave changes. Chest x-ray shows no active cardiopulmonary disease. She believes her last stress test was approximately 5 years ago. She does have multiple sclerosis that affects her left side, she does have some difficulty walking and has a fear of falling when she is outside of the house. ROS: No fever or chills. No cough or expectoration. No diaphoresis. Patient denies headache, dizziness, blurred vision, double vision. Patient denies any stomach discomfort. No nausea, vomiting. No hematochezia. No hematemesis. Denies any black stools or blood in his stools. Denies dysuria or hematuria. No muscle weakness or numbness. No chest pain or pressure. PHYSICAL EXAMINATION: This is a 62-year-old female in no apparent distress at the time of my examination. HEENT: Head is atraumatic, normocephalic. Pupils are equal, round. Sclerae anicteric. Conjunctivae are clear. Mucous membranes of the mouth are moist. Neck is supple. There is no jugular venous distention. No carotid bruit is heard. CHEST EXAMINATION: Lungs are clear to auscultation. No chest wall tenderness is noted on palpation or with deep breathing. HEART EXAMINATION: Heart bradycardic, regular rhythm. S1, S2 heard. No murmurs, gallops or rub. ABDOMEN: Soft, nontender. Bowel sounds are heard. EXTREMITIES: 2+ peripheral pulses with no evidence of peripheral edema and no calf tenderness noted. NEUROLOGIC EXAMINATION: Patient is awake, alert and oriented x3. IMPRESSION AND PLAN: 1. Chest pain 2. Diabetes 3. Lightheadedness 4. Multiple sclerosis 5. Bradycardia PLAN: We will check echocardiogram to assess heart function and structure. We will also check a stress test to r/o any reversible ischemia, patient states she is unable to walk the treadmill due to left-sided weakness from her MS, therefore we will check Lexiscan. Further recommendations post testing. I am dictating on behalf of Dr. Nilesh Youssef's history/physical and assessment/plan. Past Medical History Past Medical History: Diabetes Mellitus, GERD/Reflux, Neurologic Disorder Additional Past Medical History / Comment(s): MS History of Any Multi-Drug Resistant Organisms: None Reported Past Surgical History: Cholecystectomy, Heart Catheterization, Tonsillectomy, Tubal Ligation, Uterine Ablation Additional Past Surgical History / Comment(s): Cardiac cath 12/2012. 2- D&C Past Psychological History: No Psychological Hx Reported Smoking Status: Never smoker Past Alcohol Use History: None Reported Past Drug Use History: None Reported Medications and Allergies Home Medications Medication Instructions Recorded Confirmed Type Omeprazole 20 mg PO DAILY 10/04/13 07/25/22 History metFORMIN HCL [Glucophage] 500 mg PO BID 10/04/13 07/25/22 History sitaGLIPtin PHOSPHATE [Januvia] 100 mg PO DAILY 10/04/13 07/25/22 History Atorvastatin [Lipitor] 20 mg PO HS 10/22/19 07/25/22 History Ascorbic Acid [Vitamin C] 500 mg PO BID 07/25/22 07/25/22 History Aspirin EC [Ecotrin Low Dose] 81 mg PO DAILY 07/25/22 07/25/22 History Baclofen 5 mg PO QID PRN 07/25/22 07/25/22 History Cyanocobalamin [Vitamin B-12] 1,000 mcg PO SILVA 07/25/22 07/25/22 History Ocrelizumab [Ocrevus] 1 dose IV Q180D 07/25/22 07/25/22 History Vitamin D3(Unknown) 1 tab PO DAILY 07/25/22 07/25/22 History Vitamin E (Dl,Tocopheryl Acet) 400 unit PO DAILY 07/25/22 07/25/22 History [Vitamin E (400 Iu = 180 mg)] Allergies Allergy/AdvReac Type Severity Reaction Status Date / Time levofloxacin [From Levaquin] Allergy Rash/Hives Verified 07/25/22 16:07 Penicillins Allergy Rash/Hives Verified 07/25/22 16:07 Sulfa (Sulfonamide Allergy Rash/Hives Verified 07/25/22 16:07 Antibiotics) Physical Exam Vitals: Vital Signs Temp Pulse Pulse Resp BP BP Pulse Ox 07/26/22 07:00 97.8 F 54 L 16 110/56 99 07/26/22 02:00 56 L 07/26/22 01:57 97.6 F 56 L 16 107/51 97 07/25/22 20:00 56 L 16 07/25/22 19:49 98 F 56 L 16 108/59 97 07/25/22 17:06 97.4 F L 54 L 16 154/70 99 07/25/22 16:46 98.0 F 59 L 20 127/67 96 07/25/22 13:52 98.0 F 59 L 20 160/70 96 Intake and Output 07/25/22 07/26/22 07/26/22 22:59 06:59 14:59 Intake Total 240 0 Balance 240 0 Intake: Oral 240 0 Other: Voiding Method Toilet # Voids 1 1 Weight 67.585 kg Results 07/25/22 14:03 07/25/22 14:03 Cardiac Enzymes 07/25/22 07/25/22 07/25/22 Range/Units 14:03 14:03 16:21 AST 25 (14-36) U/L Troponin I <0.012 <0.012 (0.000-0.034) ng/mL 07/25/22 Range/Units 18:38 AST (14-36) U/L Troponin I <0.012 (0.000-0.034) ng/mL Coagulation 07/25/22 Range/Units 14:03 PT 9.4 (9.0-12.0) sec APTT 23.1 (22.0-30.0) sec CBC 07/25/22 Range/Units 14:03 WBC 6.3 (3.8-10.6) k/uL RBC 4.73 (3.80-5.40) m/uL Hgb 14.2 (11.4-16.0) gm/dL Hct 41.3 (34.0-46.0) % Plt Count 238 (150-450) k/uL Comprehensive Metabolic Panel 07/25/22 Range/Units 14:03 Sodium 142 (137-145) mmol/L Potassium 4.0 (3.5-5.1) mmol/L Chloride 107 (98-107) mmol/L Carbon Dioxide 26 (22-30) mmol/L BUN 7 (7-17) mg/dL Creatinine 0.48 L (0.52-1.04) mg/dL Glucose 122 H (74-99) mg/dL Calcium 9.7 (8.4-10.2) mg/dL AST 25 (14-36) U/L ALT 32 (4-34) U/L Alkaline Phosphatase 82 (38-126) U/L Total Protein 7.0 (6.3-8.2) g/dL Albumin 4.4 (3.5-5.0) g/dL Current Medications Generic Name Dose Route Start Last Admin Trade Name Freq PRN Reason Stop Dose Admin Aminophylline 100 mg 07/26/22 08:32 Aminophylline 500 Mg/20 Ml Vial IV 07/26/22 12:33 ONCE PRN Patient Response Ascorbic Acid 500 mg 07/25/22 21:00 07/26/22 08:51 Ascorbic Acid 500 Mg Tab PO Not Given BID ARIEL Aspirin 325 mg 07/26/22 09:00 07/26/22 08:53 Aspirin 325 Mg Tab PO 325 mg DAILY ARIEL Administration Aspirin 81 mg 07/26/22 09:00 07/26/22 08:51 Aspirin 81 Mg PO Not Given DAILY ARIEL Atorvastatin Calcium 20 mg 07/25/22 21:00 07/25/22 19:58 Atorvastatin 20 Mg Tab PO 20 mg HS ARIEL Administration Baclofen 5 mg 07/25/22 16:37 07/25/22 19:58 Baclofen 10 Mg Tab PO 5 mg QID PRN Administration Muscle Spasm Caffeine Citrate 60 mg 07/26/22 08:32 Caffeine Citrate 60 Mg/3 Ml Vial IV 07/26/22 12:33 ONCE PRN Patient Response Cyanocobalamin 1,000 mcg 07/25/22 17:00 07/25/22 17:02 Cyanocobalamin 500 Mcg Tab PO Not Given SILVA ARIEL Dextrose/Water 25 ml 07/25/22 16:38 Dextrose 50% Syringe 50 Ml IVP PER PROTOCOL PRN Hypoglycemia Protocol Dextrose/Water 50 ml 07/25/22 16:38 Dextrose 50% Syringe 50 Ml IVP PER PROTOCOL PRN Hypoglycemia Protocol Insulin Aspart 0 unit 07/25/22 17:30 07/26/22 06:10 Insulin Aspart (Novolog) 100 Unit/Ml Vial SQ Not Given ACHS ARIEL Protocol Nitroglycerin 0.4 mg 07/25/22 15:55 Nitroglycerin Sl Tabs 0.4 Mg Tab SUBLINGUAL Q5M PRN Chest Pain Nitroglycerin 1 inch 07/25/22 17:00 07/26/22 06:05 Nitroglycerin Oint 1 Inch/Gm Packet TOPICAL Not Given Q6HR ARIEL Pantoprazole Sodium 40 mg 07/26/22 07:30 07/26/22 06:10 Pantoprazole 40 Mg Tablet PO 40 mg [id number] ARIEL Administration Regadenoson 0.4 mg 07/26/22 08:32 Regadenoson 0.4 Mg/5 Ml Syringe IV 07/26/22 12:33 ONCE PRN Per Protocol Vitamin E 400 unit 07/26/22 09:00 07/26/22 08:51 Vitamin E (Dl,Tocopheryl Acet) 400 Unit (180 Mg) Cap PO Not Given DAILY ARIEL Intake and Output 07/25/22 07/26/22 07/26/22 22:59 06:59 14:59 Intake Total 240 0 Balance 240 0 Intake: Oral 240 0 Other: Voiding Method Toilet # Voids 1 1 Weight 67.585 kg 07/25/22 14:03 07/25/22 14:03
[2022-07-26 12:41] LABS: Glucose,Whole Blood 142 mg/dL (70-110)
--- NOTE | 2022-07-26 13:08 | NM ---
EXAMINATION TYPE: NM stress lexiscan cardiolite DATE OF EXAM: 07/26/2022 COMPARISON: 01/08/2013 HISTORY: Chest pain TECHNIQUE: After the intravenous administration of 11.9 mCi Tc 99m Sestamibi - Cardiolite resting SP ECT images acquired 45 minutes post injection. The patient received 0.4mg Lexiscan, 26.2 mCi Tc 99m Sestamibi - Stress images obtained [address] injection FINDINGS: Review of stress and rest SPECT images demonstrates no distinct perfusion abnormality. Gated analysi s shows normal wall motion with an estimated left ventricular ejection fraction of 76 %. IMPRESSION: No scintigraphic evidence for reversible ischemia.
--- NOTE | 2022-07-26 13:33 | CA ---
Lexiscan Nuclear Stress Test Report Name: Katharina Gonzalez Exam Date: 07/26/2022 11:25 Exam Location: [place] Stress Ht (in): 62 Wt (lb): 149 BSA: 1.69 Ordering Phys: Danni Lama Referring Phys: AMMY, Technologist: Jairo Cage Age: 62 Gender: F : 1960 Procedure CPT: Indications: Reflex order-Stress test ICD-10 Codes: Patient History: CHEST PAIN, DIFFICULTY IN BREATHING, NUMBNESS IN FACE/NECK, DIABETIC, FAMILY HX OF HEART DISEASE, PRIOR CARDIAC CATH Medications: Meds past 24 hrs: Pretest Chest Pain: STRESS TEST Lexiscan Protocol Exercise Duration (min:sec): 01:[address] Depressions (mm): Angina Score: Horton Score: Resting HR (bpm): 55 Peak HR (bpm): 122 Resting BP (mmHg): 124 / 69 Peak BP (mmHg): 159 / 90 MPHR: 159 Target HR: 135 % MPHR: 77 METS: 1.0 Total Dose: Peak Dose: Atropine: Double Product: 82644 BP Response: Stress Termination: INFUSION COMPLETE Stress Symptoms: CHEST HEAVINESS,STOMACH ACHE Stress Summary: ECG ANALYSIS Resting ECG: Stress ECG: CONCLUSIONS At baseline EKG showed normal sinus rhythm, normal axis, nonspecific T-wave inversions V3 through V6, Q waves in lead 3 with borderline 0.[address] elevation lead 3. Patient recieved IV infusion of Lexiscan 0.4mg and at peak infusion EKG showed no significant change from baseline Conclusions: 1. Nonspecific stress EKG portion second baseline EKG abnormalities 2. Nuclear imaging to be reported separately. Dr. Nilesh Youssef DO (Electronically Signed) Final Date: 26 July 2022 13:32
[2022-07-26 15:19] VITALS: BP 119/61; PULSE 66; TEMP 97.6
--- NOTE | 2022-07-26 15:23 | P.HPIM ---
History of Present Illness H&P Date: 07/26/22 This is a very pleasant 62-year-old female who presented to the emergency department with feelings of chest tightness. Patient stated symptoms started this morning and persisted and denies any further radiation or other symptoms. Patient reports this had occurred once previously and thought to have been something with her esophagus. Patient does follow with Dr. Yuliana Nunez in the outpatient setting with a past medical history of diabetes mellitus, GERD, MS. Patient does follow with Dr. Chester in the outpatient setting as her neurologist. Chest x-ray in the ER showed no active cardiopulmonary disease with normal heart no change, EKG showed sinus bradycardia with a heart rate of 56. Labs revealed a WBC of 6.3, hemoglobin is 14.2, platelets 238, sodium 142, potassium 4.0, creatinine 0.48, hemoglobin A1c is 7.8, magnesium is 1.8 troponin was negative. Patient was admitted under observation for chest pain with cardiology to evaluate Review Of Systems: Constitutional: No fever, no chills, no night sweats. No weight change. No weakness, fatigue or lethargy. No daytime sleepiness. EENT: No headache. No blurred vision or double vision, no loss of vision. No loss of Hearing, no ringing in the ears, no dizziness. No nasal drainage or congestion. No epistaxis. No sore throat. Lungs: No shortness of breath, cough, no sputum production. No wheezing. Cardiovascular: Reports chest pain with a tightness sensation that lasted a few hours and has resolved, no lower extremity edema. No palpitations. No paroxysmal nocturnal dyspnea. No orthopnea. Reports some lightheadedness and dizziness. No syncopal episodes. Abdominal: No abdominal pain. No nausea, vomiting. No diarrhea. No constipation. No bloody or tarry stools.. No loss of appetite. Genitourinary: No dysuria, increased frequency, urgency. No urinary retention. Musculoskeletal: Reports chronic myalgias as she has MS. No muscle weakness, no gait dysfunction, no frequent falls. No back pain. No neck pain. Integumentary: No wounds, no lesions. No rash or pruritus. No unusual bruising. No change in hair or nails. Neurologic: No aphasia. No facial droop. No change in mentation. No head injury. No headache. No paralysis. No paresthesia. Psychiatric: No depression. No anxiety. No mood swings. Endocrine: No abnormal blood sugars. No weight change. No excessive sweating or thirst. No cold intolerance. PHYSICAL EXAMINATION: GENERAL: The patient is alert and oriented x4, Well developed, well nourished. HEENT: Pupils are round and equally reacting to light. EOMI. no scleral icterus. No conjunctival pallor. Normocephalic, atraumatic. No pharyngeal erythema. No thyromegaly. CARDIOVASCULAR: S1 and S2 muffled PULMONARY: diminished breath sounds bilaterally with no wheezing or rhonchi noted. ABDOMEN: soft. Nontender on exam. non-distended, normoactive bowel sounds. No palpable organomegaly. MUSCULOSKELETAL: No joint swelling or deformity. EXTREMITIES: No cyanosis, clubbing, or pedal edema. NEUROLOGICAL: Gross neurological examination did not reveal any focal deficits. SKIN: No rashes. Assessment: Chest tightness with chest pain, ruled out ACS Gastroesophageal reflux disease Multiple sclerosis history GI prophylaxis DVT prophylaxis Full code Plan: Recommend to continue with current medications and management with cardiology consulted. Cardiology evaluated the patient recommending stress testing which she underwent and was negative for ischemia and has been cleared by cardiology Patient will follow-up with cardiology outpatient Patient is a diabetic and will continue sliding scale with Accu-Cheks before meals and at bedtime Continue telemetry monitoring for now Patient will be discharged today as stress test was negative Encourage the patient to follow-up with primary care provider on discharge as well as keeping her neurology appointments The impression and plan of care has been dictated by Emma Goldstein, nurse practitioner as directed. Dr. Tawny MD I have performed a history and examination and MDM of this patient, discussed the same with the dictator, and agree with the dictator's assessment and plan as written ,documented as a scribe. Based on total visit time, I have performed more than 50% of the visit. Any additional findings or plans will be noted. Past Medical History Past Medical History: Diabetes Mellitus, GERD/Reflux, Neurologic Disorder Additional Past Medical History / Comment(s): MS History of Any Multi-Drug Resistant Organisms: None Reported Past Surgical History: Cholecystectomy, Heart Catheterization, Tonsillectomy, Tubal Ligation, Uterine Ablation Additional Past Surgical History / Comment(s): Cardiac cath 12/2012. 2- D&C Past Psychological History: No Psychological Hx Reported Smoking Status: Never smoker Past Alcohol Use History: None Reported Past Drug Use History: None Reported Medications and Allergies Home Medications Medication Instructions Recorded Confirmed Type Omeprazole 20 mg PO DAILY 10/04/13 07/25/22 History metFORMIN HCL [Glucophage] 500 mg PO BID 10/04/13 07/25/22 History sitaGLIPtin PHOSPHATE [Januvia] 100 mg PO DAILY 10/04/13 07/25/22 History Atorvastatin [Lipitor] 20 mg PO HS 10/22/19 07/25/22 History Ascorbic Acid [Vitamin C] 500 mg PO BID 07/25/22 07/25/22 History Aspirin EC [Ecotrin Low Dose] 81 mg PO DAILY 07/25/22 07/25/22 History Baclofen 5 mg PO QID PRN 07/25/22 07/25/22 History Cyanocobalamin [Vitamin B-12] 1,000 mcg PO SILVA 07/25/22 07/25/22 History Ocrelizumab [Ocrevus] 1 dose IV Q180D 07/25/22 07/25/22 History Vitamin D3(Unknown) 1 tab PO DAILY 07/25/22 07/25/22 History Vitamin E (Dl,Tocopheryl Acet) 400 unit PO DAILY 07/25/22 07/25/22 History [Vitamin E (400 Iu = 180 mg)] Nitroglycerin Sl Tabs [Nitrostat] 0.4 mg SUBLINGUAL Q5M PRN #30 tab 07/26/22 Rx Pantoprazole [Protonix] 40 mg PO AC-BRKFST #14 tab 07/26/22 Rx Allergies Allergy/AdvReac Type Severity Reaction Status Date / Time levofloxacin [From Levaquin] Allergy Rash/Hives Verified 07/25/22 16:07 Penicillins Allergy Rash/Hives Verified 07/25/22 16:07 Sulfa (Sulfonamide Allergy Rash/Hives Verified 07/25/22 16:07 Antibiotics) Physical Exam Vitals: Vital Signs Temp Pulse Pulse Resp BP BP Pulse Ox 07/26/22 07:00 97.8 F 54 L 16 110/56 99 07/26/22 02:00 56 L 07/26/22 01:57 97.6 F 56 L 16 107/51 97 07/25/22 20:00 56 L 16 07/25/22 19:49 98 F 56 L 16 108/59 97 07/25/22 17:06 97.4 F L 54 L 16 154/70 99 07/25/22 16:46 98.0 F 59 L 20 127/67 96 07/25/22 13:52 98.0 F 59 L 20 160/70 96 Intake and Output 07/25/22 07/26/22 07/26/22 22:59 06:59 14:59 Intake Total 240 0 Balance 240 0 Intake: Oral 240 0 Other: Voiding Method Toilet # Voids 1 1 Weight 67.585 kg Results CBC & Chem 7: 07/25/22 14:03 07/25/22 14:03 Labs: Abnormal Lab Results - Last 24 Hours (Table) 07/25/22 07/25/22 07/25/22 Range/Units 14:03 18:38 19:51 Creatinine 0.48 L (0.52-1.04) mg/dL Glucose 122 H (74-99) mg/dL POC Glucose (mg/dL) 194 H (70-110) mg/dL Hemoglobin A1c 7.8 H (0.0-6.0) % HDL Cholesterol (40.00-60.00) mg/dL 07/26/22 07/26/22 Range/Units 05:41 06:09 Creatinine (0.52-1.04) mg/dL Glucose (74-99) mg/dL POC Glucose (mg/dL) 148 H (70-110) mg/dL Hemoglobin A1c (0.0-6.0) % HDL Cholesterol 76.50 H (40.00-60.00) mg/dL Thrombosis Risk Factor Assmnt - Choose All That Apply Each Risk Factor Represents 2 Points: Age 61-74 years Thrombosis Risk Factor Assessment Total Risk Factor Score: 2 Thrombosis Risk Factor Assessment Level: Low Risk Assessment and Plan Time with Patient: Greater than 30
--- NOTE | 2022-07-27 09:31 | CA ---
Transthoracic Echo Report Name: Katharina Gonzalez Age: 62 Gender: F : 1960 Exam Date: 07/26/2022 14:12 Exam Location: [facility] Ht (in): 62 Wt (lb): 149 Ordering Physician: Danni Lama Attending/Referring Phys: Storeroom Supervisor Adonay Escalona RDCS Procedure CPT: Indications: Chest Pain Cardiac Hx: Technical Quality: Fair Contrast 1: Total Dose (mL): Contrast 2: Total Dose (mL): MEASUREMENTS (Male / Female) Normal Values 2D ECHO LV Diastolic Diameter PLAX 4.1 cm 4.2 - 5.9 / 3.9 - 5.3 cm LV Systolic Diameter PLAX 3.0 cm LV Fractional Shortening PLAX 26.6 % IVS Diastolic Thickness 0.8 cm 0.6 - 1.0 / 0.6 - 0.9 cm IVS Systolic Thickness 1.4 cm LVPW Diastolic Thickness 0.9 cm 0.6 - 1.0 / 0.6 - 0.9 cm LVPW Systolic Thickness 1.3 cm LV Relative Wall Thickness 0.4 RV Internal Dim ED PLAX 2.5 cm LVOT Diameter 2.0 cm LA Systolic Diameter LX 3.1 cm 3.0 - 4.0 / 2.7 - 3.8 cm LV Diastolic Volume MOD 4C 50.7 cm??? LV Systolic Volume MOD 4C 23.3 cm??? LV Ejection Fraction MOD 4C 54.1 % LV Stroke Volume MOD 4C 27.4 cm??? LV Diastolic Length 4C 5.3 cm LV Systolic Length 4C 4.6 cm Ascending Aorta Diameter 2.1 cm M-MODE Aortic Root Diameter MM 3.0 cm LA Systolic Diameter MM 3.7 cm LA Ao Ratio MM 1.2 MV E Point Septal Separation 0.7 cm AV Cusp Separation MM 1.6 cm DOPPLER AV Peak Velocity 91.3 cm/s AV Peak Gradient 3.3 mmHg MV Deceleration [place] 417.9 cm/s??? Mitral E Point Velocity 71.0 cm/s Mitral A Point Velocity 54.8 cm/s Mitral E to A Ratio 1.3 MV Deceleration Time 170.0 ms MV E' Velocity 4.8 cm/s Mitral E to MV E' Ratio 14.8 TR Peak Velocity 103.4 cm/s TR Peak Gradient 4.3 mmHg Right Ventricular Systolic Press 9.3 mmHg FINDINGS Left Ventricle Left ventricular ejection fraction is estimated at 60-65%. Grade 1 diastolic dysfunction. Normal basal systolic function. Right Ventricle Normal right ventricular size and function. Right Atrium Normal right atrial size. Left Atrium Normal left atrial size. Mitral Valve Structurally normal mitral valve. Trace mitral regurgitation. Aortic Valve Trileaflet aortic valve. Tricuspid Valve Trace to mild tricuspid regurgitation. Pulmonic Valve Structurally normal pulmonic valve. Pericardium Normal pericardium. Trivial pericardial effusion. Aorta Normal size aortic root and proximal ascending aorta. CONCLUSIONS Left ventricular ejection fraction 60-65% Trace mitral regurgitation Trace to mild tricuspid regurgitation RVSP 9 Previewed by: Dr. Nilesh Youssef DO (Electronically Signed) Final Date: 27 July 2022 09:30
== END 2022-07-26 16:29 | disposition home or self-care (01) ==
LOC: EC 13:49 → 6NMEDSUR 15:55
PROVIDERS: ADMIT Internal Medicine; ATTEND Internal Medicine
DX: R07.89 Other chest pain (principal); G35 Multiple sclerosis; E11.9 Type 2 diabetes mellitus without complications; K21.9 Gastro-esophageal reflux disease without esophagitis; E78.5 Hyperlipidemia, unspecified; I08.1 Rheumatic disorders of both mitral and tricuspid valves; I31.39 Other pericardial effusion (noninflammatory); Z79.84 Long term (current) use of oral hypoglycemic drugs; Z79.899 Other long term (current) drug therapy; Z79.02 Long term (current) use of antithrombotics/antiplatelets; Z88.0 Allergy status to penicillin; Z88.2 Allergy status to sulfonamides; Z88.1 Allergy status to other antibiotic agents; Z86.73 Personal history of transient ischemic attack (TIA), and cerebral infarction without residual deficits; Z90.49 Acquired absence of other specified parts of digestive tract; Z98.51 Tubal ligation status; Z79.82 Long term (current) use of aspirin
CPT/HCPCS: 99285; 36415; 93005; 93017; 93306; 80061; 80053; 83735; 84484; 85025; 85610; 85730; 83036; 71046; 78452; G0378 ×2; A9500; J2785

== ENCOUNTER → 2022-11-26 | Outpatient (CLI) | payer BC ==
--- NOTE | 2022-11-29 15:13 | MM ---
Reason for Exam: Screening (asymptomatic). Last mammogram was performed 1 year(s) and 2 month(s) ago. Patient History: Menarche at age 13. First Full-Term at age 20. Postmenopausal. Maternal grandmother had breast cancer. Sister had breast cancer, age 51. Risk Values: Eduarda 5 year model risk: 2.8%. NCI Lifetime model risk: 12.9%. Prior Study Comparison: 11/09/2018 Bilateral Screening Mammogram, [facility]. 05/01/2020 Bilateral Screening Mammogram, [facility]. 09/01/2021 Bilateral Screening Mammogram, [facility]. Tissue Density: There are scattered fibroglandular densities. Findings: Analyzed By CAD. Pattern appears symmetrical and stable. No significant interval change is evident. Benign spherical calcifications are present. No suspicious groups of microcalcifications, spiculated or lobular masses, architectural distortion or other secondary signs of malignancy are mammographically apparent. Overall Assessment: Benign, BI-RAD 2 Management: Screening Mammogram of both breasts in 1 year. A negative mammogram report should not preclude additional follow up of suspicious palpable abnormalities. Patient should continue monthly self breast exam. A clinical breast exam by your physician is recommended on an annual basis and results should be correlated with mammographic findings. Electronically signed and approved by: Bayron Vidal D.O. Radiologis
== END | disposition home or self-care (01) ==
LOC: RADMAMWWP 12:58
PROVIDERS: ATTEND Family Medicine
DX: Z12.31 Encounter for screening mammogram for malignant neoplasm of breast (principal); Z78.0 Asymptomatic menopausal state; Z80.3 Family history of malignant neoplasm of breast
CPT/HCPCS: 77063; 77067

== ENCOUNTER 2023-09-20 06:55 | Day surgery (SDC) | payer BC ==
[2023-09-14 10:52] VITALS: BMI 24.7
[~2023-09-20 06:55] MED LIST: LIDOCAINE 1% (10MG/ML) FOR IV START INTRADERMA PRN
[2023-09-20] MEDS ORDERED: ONDANSETRON 4 MG/2 ML VIAL ONE (07:30)
[2023-09-20] MEDS: LACTATED RINGERS 1,000 ML IV SCH (07:42)
[2023-09-20] MEDS: ONDANSETRON 4 MG/2 ML VIAL IVP ONE (07:42)
[2023-09-20 07:52] VITALS: RESP 16; TEMP 97.6
[2023-09-20 07:56] LABS: Glucose,Whole Blood 131 mg/dL (70-110)
[2023-09-20] MEDS ORDERED: PROPOFOL 10 MG/ML 20 ML VIAL IV ONE (08:29)
[2023-09-20] MEDS ORDERED: LIDOCAINE 1% INJ 10MG/ML (20 ML MDV) ONE (08:29)
--- NOTE | 2023-09-20 08:32 | P.GSHP ---
History of Present Illness H&P Date: 09/20/23 Chief Complaint: Colon cancer screening 63-year-old female here for colonoscopy. Last colonoscopy 10 years ago or so. No bowel complaints. No family history of colon cancer. No rectal bleeding. Past Medical History Past Medical History: Diabetes Mellitus, GERD/Reflux, Neurologic Disorder Additional Past Medical History / Comment(s): MS, Left sided weakness History of Any Multi-Drug Resistant Organisms: None Reported Past Surgical History: Cholecystectomy, Heart Catheterization, Tonsillectomy, Tubal Ligation, Uterine Ablation Additional Past Surgical History / Comment(s): Cardiac cath 12/2012. 2- D&C Past Anesthesia/Blood Transfusion Reactions: Postoperative Nausea & Vomiting (PONV) Smoking Status: Never smoker - Past Family History Mother Family Medical History: Cancer Additional Family Medical History / Comment(s): Lung Medications and Allergies Home Medications Medication Instructions Recorded Confirmed Type Omeprazole 20 mg PO DAILY 10/04/13 09/14/23 History metFORMIN HCL [Glucophage] 1,000 mg PO BID 10/04/13 09/20/23 History sitaGLIPtin PHOSPHATE [Januvia] 100 mg PO DAILY 10/04/13 09/20/23 History Atorvastatin [Lipitor] 20 mg PO HS 10/22/19 09/20/23 History Ascorbic Acid [Vitamin C] 500 mg PO BID 07/25/22 09/14/23 History Aspirin EC [Ecotrin Low Dose] 81 mg PO DAILY 07/25/22 09/14/23 History Baclofen 10 mg PO BID 07/25/22 09/14/23 History Cyanocobalamin [Vitamin B-12] 1,000 mcg PO DAILY 07/25/22 09/14/23 History Vitamin D3(Unknown) 1 tab PO DAILY 07/25/22 09/14/23 History Vitamin E (Dl,Tocopheryl Acet) 400 unit PO DAILY 07/25/22 09/14/23 History [Vitamin E (400 Iu = 180 mg)] Nitroglycerin Sl Tabs [Nitrostat] 0.4 mg SUBLINGUAL Q5M PRN #30 tab 07/26/22 09/14/23 Rx Losartan [Cozaar] 12.5 mg PO DAILY 09/14/23 09/14/23 History Ocrelizumab [Ocrevus] 300 mg IV 09/20/23 History Allergies Allergy/AdvReac Type Severity Reaction Status Date / Time levofloxacin [From Levaquin] Allergy Rash/Hives Verified 09/20/23 07:20 Penicillins Allergy Rash/Hives Verified 09/20/23 07:20 Sulfa (Sulfonamide Allergy Rash/Hives Verified 09/20/23 07:20 Antibiotics) Surgical - Exam Vital Signs Temp Pulse Resp BP Pulse Ox 97.6 F 72 16 129/66 98 09/20/23 07:28 09/20/23 07:28 09/20/23 07:28 09/20/23 07:28 09/20/23 07:28 Physical exam: General: Well-developed, well-nourished HEENT: Normocephalic, sclerae nonicteric Abdomen: Nontender, nondistended Extremities: No edema Neuro: Alert and oriented Results - Labs Abnormal Lab Results - Last 24 Hours (Table) 09/20/23 Range/Units 07:40 POC Glucose (mg/dL) 131 H (70-110) mg/dL Assessment and Plan (1) Colon cancer screening Narrative/Plan: Will proceed with colonoscopy at this time. Current Visit: Yes Status: Acute Code(s): Z12.11 - ENCOUNTER FOR SCREENING FOR MALIGNANT NEOPLASM OF COLON SNOMED Code(s): 825317571
--- NOTE | 2023-09-20 08:46 | P.PCN ---
Date of Procedure: 09/20/23 Procedure(s) Performed: PREOPERATIVE DIAGNOSIS: Colon cancer screening POSTOPERATIVE DIAGNOSIS: Normal exam PROCEDURE: Colonoscopy ANESTHESIA: MAC SURGEON: Jorje Jenkins M.D. SPECIMENS: None ENDOSCOPIC PROCEDURE: The patient was placed on the endoscopy table in the left decubitus position. The Olympus colonoscope was inserted into the anus and passed under direct visualization to the base of the cecum. The appendiceal orifice was visualized. From that point the scope was slowly withdrawn inspecti ng all surfaces carefully. There were no neoplastic inflammatory or polypoid lesions throughout the cecum, ascending, transverse, descending, sigmoid and rectum. There was no visible diverticulosis noted. Digital rectal examination was normal. The patient was taken to the recovery room in stable condition per anesthesia guidelines. RECOMMENDATIONS: Resume diet. Repeat colonoscopy 10 years.
[2023-09-20 09:42] VITALS: BP 114/75
[2023-09-20 09:43] VITALS: PULSE 57
== END 2023-09-20 09:28 | disposition home or self-care (01) ==
LOC: ORWHC2ENDO 06:55
PROVIDERS: ATTEND Surgery
DX: Z12.11 Encounter for screening for malignant neoplasm of colon (principal); E11.9 Type 2 diabetes mellitus without complications; K21.9 Gastro-esophageal reflux disease without esophagitis; G35 Multiple sclerosis; Z79.84 Long term (current) use of oral hypoglycemic drugs; Z88.0 Allergy status to penicillin; Z88.1 Allergy status to other antibiotic agents; Z88.2 Allergy status to sulfonamides; Z90.49 Acquired absence of other specified parts of digestive tract; Z79.899 Other long term (current) drug therapy; Z98.51 Tubal ligation status; Z79.82 Long term (current) use of aspirin
CPT/HCPCS: 45378; J2405; J2001; J2704

== ENCOUNTER → 2024-01-05 | Outpatient (CLI) | payer BC ==
--- NOTE | 2024-01-08 12:09 | MM ---
Reason for Exam: Screening (asymptomatic). Last mammogram was performed 1 year(s) and 2 month(s) ago. Patient History: Menarche at age 13. First Full-Term at age 20. Postmenopausal. Maternal grandmother had breast cancer. Sister had breast cancer, age 51. Risk Values: Eduarda 5 year model risk: 2.8%. NCI Lifetime model risk: 12.5%. Prior Study Comparison: 05/01/2020 Bilateral Screening Mammogram, [facility]. 09/01/2021 Bilateral Screening Mammogram, [facility]. 11/26/2022 Bilateral MG 3D screening mammo w/cad, [facility]. Tissue Density: There are scattered areas of fibroglandular density. Findings: Analyzed By CAD. Right breast: There is no suspicious group of microcalcifications or new suspicious mass. Left breast: There is no suspicious group of microcalcifications or new suspicious mass. Overall Assessment: Negative, BI-RAD 1 Management: Screening Mammogram of both breasts in [address] [facility] will attempt to contact patient to return for supplemental views and ultrasound if indicated. Patient should continue monthly self-breast exams. A clinical breast exam by your physician is recommended on an annual basis. This exam should not preclude additional follow-up of suspicious palpable abnormalities. Note on Eduarda scores and lifetime risk: 1. A Eduarda score greater than 3% is considered moderate risk. If this is the case, consider specialist referral to assess eligibility for a risk reducing agent. 2. If overall lifetime risk for the development of breast cancer is 20% or higher, the patient may qualify for future screening with alternating mammogram and breast MRI. Electronically signed and approved by: Elmo Baker DO
== END | disposition home or self-care (01) ==
LOC: RADMAMWWP 11:42
PROVIDERS: ATTEND Family Medicine
DX: Z12.31 Encounter for screening mammogram for malignant neoplasm of breast
CPT/HCPCS: 77063; 77067

== ENCOUNTER 2024-03-12 13:21 | Inpatient (IN) | payer BC, MEDICARE ==
--- NOTE | 2024-03-12 14:14 | ED ---
Chest Pain HPI - General Source: patient, RN notes reviewed Mode of arrival: ambulatory Limitations: no limitations <Anum Sandhu - Last Filed: 03/12/24 14:13> - General Source: patient, family, RN notes reviewed Limitations: no limitations <Sid Khan - Last Filed: 03/12/24 15:16> - General Chief Complaint: Chest Pain Stated Complaint: Chest pain,weakness,AMS Time Seen by Provider: 03/12/24 13:38 - History of Present Illness Initial Comments: Quick [id number] female with MS presenting to the emergency department with for complaint of weakness, chest pain, and dizziness that has been worsening over the past week. Patient is concerned that she may be in a relapse. Receives a infusion every 6 months for MS. (Anum Sandhu) Patient is a 64-year-old female presenting to the emergency department with concerns for chest discomfort. Onset of symptoms was this morning. Discomfort feels like tightness. Patient does have history of similar episode approximately 4 times previously also associated with her MS exacerbations. Patient has had previous imaging including CT and MRI and has had this recently. Patient states she has had some increased weakness over the past 1 week, more so on the left side. This has worsened to the point where she is unable to get up or walk on her own. (Sid Khan) - Related Data Home Medications Medication Instructions Recorded Confirmed Omeprazole 20 mg PO DAILY 10/04/13 09/14/23 metFORMIN HCL [Glucophage] 1,000 mg PO BID 10/04/13 09/20/23 sitaGLIPtin PHOSPHATE [Januvia] 100 mg PO DAILY 10/04/13 09/20/23 Atorvastatin [Lipitor] 20 mg PO HS 10/22/19 09/20/23 Ascorbic Acid [Vitamin C] 500 mg PO BID 07/25/22 09/14/23 Aspirin EC [Ecotrin Low Dose] 81 mg PO DAILY 07/25/22 09/14/23 Baclofen 10 mg PO BID 07/25/22 09/14/23 Cyanocobalamin [Vitamin B-12] 1,000 mcg PO DAILY 07/25/22 09/14/23 Vitamin D3(Unknown) 1 tab PO DAILY 07/25/22 09/14/23 Vitamin E (Dl,Tocopheryl Acet) 400 unit PO DAILY 07/25/22 09/14/23 [Vitamin E (400 Iu = 180 mg)] Losartan [Cozaar] 12.5 mg PO DAILY 09/14/23 09/14/23 Ocrelizumab [Ocrevus] 300 mg IV 09/20/23 Previous Rx's Medication Instructions Recorded Nitroglycerin Sl Tabs [Nitrostat] 0.4 mg SUBLINGUAL Q5M PRN #30 tab 07/26/22 Allergies Allergy/AdvReac Type Severity Reaction Status Date / Time levofloxacin [From Levaquin] Allergy Rash/Hives Verified 09/20/23 07:20 Penicillins Allergy Rash/Hives Verified 09/20/23 07:20 Sulfa (Sulfonamide Allergy Rash/Hives Verified 09/20/23 07:20 Antibiotics) Review of Systems ROS Other: All systems not noted in ROS Statement are negative. <Anum Sandhu - Last Filed: 03/12/24 14:13> ROS Other: All systems not noted in ROS Statement are negative. Constitutional: Denies: fever Eyes: Denies: eye pain ENT: Denies: ear pain Respiratory: Denies: cough Cardiovascular: Reports: as per HPI, chest pain Neurological: Reports: as per HPI, weakness. Denies: headache <Sid Khan - Last Filed: 03/12/24 15:16> ROS Statement: Those systems with pertinent positive or pertinent negative responses have been documented in the HPI. EKG Findings - EKG Results: EKG: interpreted by ERMD (Low QRS voltage), sinus rhythm, normal axis, normal ST/T <Sid Khan - Last Filed: 03/12/24 15:16> Past Medical History Past Medical History: Diabetes Mellitus, GERD/Reflux, Neurologic Disorder Additional Past Medical History / Comment(s): MS, Left sided weakness History of Any Multi-Drug Resistant Organisms: None Reported Past Surgical History: Cholecystectomy, Heart Catheterization, Tonsillectomy, Tubal Ligation, Uterine Ablation Additional Past Surgical History / Comment(s): Cardiac cath 12/2012. 2- D&C Past Anesthesia/Blood Transfusion Reactions: Postoperative Nausea & Vomiting (PONV) Past Psychological History: No Psychological Hx Reported Smoking Status: Never smoker - Past Family History Mother Family Medical History: Cancer Additional Family Medical History / Comment(s): Lung <Anum Sandhu - Last Filed: 03/12/24 14:13> General Exam Limitations: no limitations <Anum Sandhu - Last Filed: 03/12/24 14:13> Limitations: no limitations General appearance: alert, in no apparent distress Head exam: Present: normocephalic Eye exam: Present: normal appearance, PERRL, EOMI Neck exam: Present: normal inspection. Absent: tenderness Respiratory exam: Present: normal lung sounds bilaterally Cardiovascular Exam: Present: regular rate, normal rhythm, normal heart sounds Expanded Peripheral pulses: 2+: Radial (R), Radial (L), Dorsalis Pedis (R), Dorsalis Pedis (L) GI/Abdominal exam: Present: soft. Absent: tenderness Extremities exam: Present: normal inspection Neurological exam: Present: alert, oriented X3, CN II-XII intact Expanded Neurological exam: Present: protecting the airway Speech: Present: fluid speech Cranial nerves: EOM's Intact: Normal Motor strength exam: RUE: 5, LUE: 4, RLE: 5, LLE: 2/1 Eye Response: (4) open spontaneously Motor Response: (6) obeys commands Verbal Response: (5) oriented Psychiatric exam: Present: normal affect, normal mood Skin exam: Present: normal color <Sid Khan - Last Filed: 03/12/24 15:16> - General Exam Comments Initial Comments: Visual Physical Exam Vital signs reviewed General: Well-appearing, nontoxic, no acute distress. Head: Normocephalic, atraumatic Eyes: PERRLA, EOMI ENT: Airway patent Chest: Nonlabored breathing Skin: No visual rash, normal skin tone Neuro: Alert and oriented 3 Musculoskeletal: No gross abnormalities (Anum Sandhu) Course Vital Signs 03/12/24 03/12/24 13:35 14:40 Temperature 97.8 F Pulse Rate 65 68 Pulse Rate [ 68 Right Prone Radial] Respiratory 16 18 Rate Blood Pressure 146/86 148/75 O2 Sat by Pulse 99 97 Oximetry Chest Pain [facility] <Anum Sandhu - Last Filed: 03/12/24 14:13> <Sid Khan - Last Filed: 03/12/24 15:16> - MDM I completed the quick note portion of this chart signed Anum Sandhu PA-C (Anum Sandhu) Was pt. sent in by a medical professional or institution (JARON Cruz, NAIL PROFESSIONAL, urgent care, hospital, or skilled nursing...) When possible be specific @ -No Did you speak to anyone other than the patient for history (EMS, parent, family, police, friend...)? What history was obtained from this source @ - is present and helps provide additional history including history of MS and symptoms that patient is experiencing at home Did you review nursing and triage notes (agree or disagree)? Why? @ -I reviewed and agree with nursing and triage notes Were old charts reviewed (outside hosp., previous admission, EMS record, old EKG, old radiological studies, urgent care reports/EKG's, skilled nursing records)? Report findings @ -No old charts were reviewed Differential Diagnosis (chest pain, altered mental status, abdominal pain women, abdominal pain men, vaginal bleeding, weakness, fever, dyspnea, syncope, headache, dizziness, GI bleed, back pain, seizure, CVA, palpatations, mental health, musculoskeletal)? @ -Differential Chest Pain: Stable Angina, Unstable Angina, STEMI, NSTEMI Aortic Dissection, Pneumothorax, Musculoskeletal, Esophageal Spasm GERD, Cholecystitis, Pancreatitis, Zoster, this is not meant to be an all-inclusive list. Differential Weakness: Hypoglycemia, shock, sepsis, hyponatremia, anemia, infection, DC, ETOH, adverse medicine reaction, overdose, stroke, this is not meant to be an all-inclusive list. EKG interpreted by me (3pts min.). @ -As above X-rays interpreted by me (1pt min.). @ -Chest x-ray shows no acute process CT interpreted by me (1pt min.). @ -None done U/S interpreted by me (1pt. min.). @ -None done What testing was considered but not performed or refused? (CT, X-rays, U/S, labs)? Why? @ -Considered imaging of the brain however patient does have history of similar symptoms at least 4 times previously and has had previous imaging What meds were considered but not given or refused? Why? @ -None Did you discuss the management of the patient with other professionals (professionals i.e. JARON Cruz, NAIL PROFESSIONAL, lab, RT, psych nurse, home health care social worker, adolescent medicine specialist, teacher, commissioned police officer, case reviewer)? Give summary @ -Case was discussed with Dr. Austin who will admit covering Dr. Nunez Was smoking cessation discussed for >3mins.? @ -No Was critical care preformed (if so, how long)? @ -No Were there social determinants of health that impacted care today? How? (Homelessness, low income, unemployed, alcoholism, drug addiction, transport ation, low edu. Level, literacy, decrease access to med. care, halfway, rehab)? @ -No Was there de-escalation of care discussed even if they declined (Discuss DNR or withdrawal of care, Hospice)? DNR status @ -No What co-morbidities impacted this encounter? (DM, HTN, Smoking, COPD, CAD, Cancer, CVA, ARF, Chemo, Hep., AIDS, mental health diagnosis, sleep apnea, morbid obesity)? @ -History of MS Was patient admitted / discharged? Hospital course, mention meds given and route, prescriptions, significant lab abnormalities, going to OR and other pertinent info. @ -Patient presents with concern for exacerbation of MS with associated chest discomfort which is also similar to previous exacerbations. ER evaluation unremarkable. Patient will be admitted with neuro and cardiac consults. [place] orders written. Undiagnosed new problem with uncertain prognosis? @ -No Drug Therapy requiring intensive monitoring for toxicity (Heparin, Nitro, Insulin, Cardizem)? @ -No Were any procedures done? @ -No Diagnosis/symptom? @ -Chest pain, MS exacerbation Acute, or Chronic, or Acute on Chronic? @ -Acute, acute Uncomplicated (without systemic symptoms) or Complicated (systemic symptoms)? @ -Default Side effects of treatment? @ -No Exacerbation, Progression, or Severe Exacerbation? @ -No Poses a threat to life or bodily function? How? (Chest pain, [place], DC, pneumonia, PE, COPD, DKA, ARF, appy, cholecystitis, CVA, Diverticulitis, Homicidal, Suicidal, threat to staff... and all critical care pts) @ -Threat to cardiac function (Sid Khan) Disposition <Anum Sandhu - Last Filed: 03/12/24 14:13> Is patient prescribed a controlled substance at d/c from ED?: No Time of Disposition: 15:16 <Sid Khan - Last Filed: 03/12/24 15:16> Clinical Impression: Chest pain, Multiple sclerosis exacerbation Disposition: ADMITTED IP TO THIS HOSP Referrals: Yuliana Moore, DO [Primary Care Provider] - 1-2 days
[2024-03-12 14:28] LABS: Basophils % (A) 1 %; Eosinophils # (A) 0.2 k/uL (0-0.7); Eosinophils % (A) 3 %; HCT 42.7 % (34.0-46.0); HGB 13.8 gm/dL (11.4-16.0); Lymphocytes # (A) 1.9 k/uL (1.0-4.8); Lymphocytes % (A) 26 %; MCH 29.6 pg (25.0-35.0); MCHC 32.3 g/dL (31.0-37.0); MCV 91.8 fL (80.0-100.0); Mean Platelet Volume 7.7; Monocytes # (A) 0.5 k/uL (0-1.0); Monocytes % (A) 7 %; Neutrophils # (A) 4.6 k/uL (1.3-7.7); Neutrophils % (A) 63 %; Platelet Count 293 k/uL (150-450); RBC 4.65 m/uL (3.80-5.40); RDW 13.1 % (11.5-15.5); WBC 7.3 k/uL (3.8-10.6)
[2024-03-12 14:47] LABS: ALT 18 U/L (4-34); AST 22 U/L (14-36); African American GFR (CKD) >90 (>60 ml/min/1.73 sqM); Albumin 4.9 g/dL (3.5-5.0); Alkaline Phosphatase 58 U/L (38-126); Anion Gap 8 mmol/L; Blood Urea Nitrogen 5 mg/dL (7-17); Calcium 10.1 mg/dL (8.4-10.2); Carbon Dioxide 24 mmol/L (22-30); Chloride 107 mmol/L (98-107); Glucose 85 mg/dL (74-99); Magnesium 1.4 mg/dL (1.6-2.3); Non-African American GFR(CKD) >90 (>60 ml/min/1.73 sqM); Potassium 4.1 mmol/L (3.5-5.1); Sodium 139 mmol/L (137-145); Total Bilirubin 0.8 mg/dL (0.2-1.3); Total Protein 7.5 g/dL (6.3-8.2)
[2024-03-12 14:55] LABS: INR 0.9 (<1.2); Partial Thromboplastin Time 24.3 sec (22.0-30.0); Prothrombin Time 9.8 sec (10.0-12.5)
--- NOTE | 2024-03-12 14:56 | XR ---
EXAMINATION TYPE: XR chest 2V DATE OF EXAM: 03/12/2024 2:24 PM COMPARISON: Chest radiographs from 07/25/2022 CLINICAL INDICATION: Female, 64 years old with history of Chest Pain; [facility] TECHNIQUE: XR chest 2V Frontal and lateral views of the chest. FINDINGS: Lungs/Pleura: There is no evidence of pleural effusion, focal consolidation, or pneumothorax. Pulmonary vascularity: Unremarkable. Heart/mediastinum: Cardiomediastinal silhouette is unremarkable. Musculoskeletal: No acute osseous pathology. Other findings: None IMPRESSION: No acute cardiopulmonary disease/process. [facility], , 03/12/2024 2:53 PM
[2024-03-12] MEDS ORDERED: NITROGLYCERIN SL TABS 0.4 MG TAB SUBLINGUAL PRN (15:16)
[2024-03-12 15:18] LABS: Appearance,Urine Clear (Clear); Bilirubin,Urine Negative (Negative); Blood,Urine Negative (Negative); Color,Urine Colorless; Glucose,Urine (UA) Negative (Negative); Ketones,Urine Negative (Negative); Leukocyte Esterase,Urine Negative (Negative); Nitrite,Urine Negative (Negative); PH, Urine 5.5 (5.0-8.0); Protein,Urine Negative (Negative); Specific Gravity,Urine 1.006 (1.001-1.035); Urobilinogen,Urine <2.0 mg/dL (<2.0)
[2024-03-12] MEDS: ASPIRIN 81 MG PO STA (15:23)
[2024-03-12] MEDS: MAGNESIUM OXIDE 400 MG TAB PO STA (15:24)
[2024-03-12] MEDS: methylPREDNISolone SOD SUCCIN 500 MG in SODIUM CHLORIDE 0.9% 100 ML IVPB STA (15:48)
[2024-03-12 18:52] LABS: Glucose,Whole Blood 142 mg/dL (70-110)
[2024-03-13] MEDS: LOSARTAN 25 MG TAB PO SCH (08:30)
[2024-03-13] MEDS: ASPIRIN 81 MG PO SCH (08:30)
[2024-03-13] MEDS ORDERED: ASPIRIN 325 MG TAB PO SCH (09:00)
--- NOTE | 2024-03-13 09:48 | P.CRDCN ---
History of Present Illness History of present illness: HISTORY OF PRESENT ILLNESS: This is a 64-year-old female with a past medical history significant for multiple sclerosis (diagnosed approximately 4 years ago) , hypertension, hyperlipidemia, and diabetes. 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 We have been asked to see the patient in consultation for chest pain. Patient examined at the bedside in the emergency room. Patient states for the past week she has been feeling unwell. She states that her breathing felt tight and she had heavy breathing. She denied having any chest discomfort. She states for the past 3 to 4 days she has gotten increasingly weak and has been unable to walk without a walker. She contacted her neurologist to try to get an appointment but was unable to be seen so she came to the emergency room for further evaluation. Patient also reports having a hard time focusing at home. At the time of exami nation, she denies chest pain or pressure. She denies shortness of breath. She is a non-smoker. Vital signs are stable. DIAGNOSTICS: - EKG reveals sinus mechanism with no signs of acute ischemia - Chest xray negative for acute process - Laboratory data: WBC 7.3. Hemoglobin 13.8. Platelet count 293. D-dimer 0.54. Sodium 139. Potassium 4.1. BUN 5. Creatinine 0.44. Troponin negative x 3. - Current home cardiac medications include aspirin 81 mg daily, losartan 12.5 mg daily, atorvastatin 10 mg at night - Most recent echocardiogram obtained in June 2022 revealed ejection fraction 60 to 65%, trace MR, trace to mild TR - Cardiac catheterization history: 2012 revealing normal coronary arteries - Patient underwent Lexiscan stress test in July 2023 which was negative for ischemia REVIEW OF SYSTEMS: At the time of my exam: CONSTITUTIONAL: Denies fever or chills. HEENT: Denies blurred vision, vision changes, or eye pain. Denies hemoptysis CARDIOVASCULAR: Denies chest pain. Denies orthopnea. Denies PND. Denies palpitations RESPIRATORY: Denies shortness of breath. GASTROINTESTINAL: Denies abdominal pain. Denies nausea or vomiting. HEMATOLOGIC: Denies bleeding disorders. GENITOURINARY: Denies any blood in urine. SKIN: Denies pruitis. Denies rash. PHYSICAL EXAM: VITAL SIGNS: Reviewed. GENERAL: Well-developed in no acute distress. HEENT: Head is normocephalic. Pupils are equal, round. Sclerae anicteric. Mucous membranes of the mouth are moist. Neck supple. No JVD or thyromegaly LUNGS: Respirations even and unlabored. Lungs essentially clear to auscultation bilaterally. HEART: Regular rate and rhythm. S1 and S2 heard. ABDOMEN: Soft. Nondistended. Nontender. EXTREMITIES: Normal range of motion. No clubbing or cyanosis. Peripheral pulses intact. No lower extremity edema NEUROLOGIC: Awake and alert. Oriented x 3. ASSESSMENT: Generalized weakness x 1 week Atypical chest discomfort, patient reports heavy breathing but denied chest discomfort, troponin negative x 3 Multiple sclerosis with suspected exacerbation Normal coronary arteries, per cardiac catheterization, 2012 Hypertension Hyperlipidemia Diabetes PLAN: An acute coronary event has been ruled out Obtain 2D echo to assess cardiac structure and function Resume home cardiac medications Await evaluation from neurology Further recommendations pending patient course Nurse practitioner note has been reviewed by physician. Signing provider agrees with the documented findings, assessment, and plan of care documented by PHP ARCHITECT as a scribe. Past Medical History Past Medical History: Diabetes Mellitus, GERD/Reflux, Neurologic Disorder Additional Past Medical History / Comment(s): MS, Left sided weakness History of Any Multi-Drug Resistant Organisms: None Reported Past Surgical History: Cholecystectomy, Heart Catheterization, Tonsillectomy, Tubal Ligation, Uterine Ablation Additional Past Surgical History / Comment(s): Cardiac cath 12/2012. 2- D&C Past Anesthesia/Blood Transfusion Reactions: Postoperative Nausea & Vomiting (PONV) Past Psychological History: No Psychological Hx Reported Smoking Status: Never smoker - Past Family History Mother Family Medical History: Cancer Additional Family Medical History / Comment(s): Lung Medications and Allergies Home Medications Medication Instructions Recorded Confirmed Type Omeprazole 20 mg PO DAILY 10/04/13 03/12/24 History sitaGLIPtin PHOSPHATE [Januvia] 100 mg PO DAILY 10/04/13 03/12/24 History Ascorbic Acid [Vitamin C] 1,000 mg PO BID 07/25/22 03/12/24 History Aspirin EC [Ecotrin Low Dose] 81 mg PO DAILY 07/25/22 03/12/24 History Baclofen 10 mg PO BID 07/25/22 03/12/24 History Cyanocobalamin [Vitamin B-12] 1,000 mcg PO DAILY 07/25/22 03/12/24 History Vitamin E (Dl,Tocopheryl Acet) 400 unit PO DAILY 07/25/22 03/12/24 History [Vitamin E (400 Iu = 180 mg)] Nitroglycerin Sl Tabs [Nitrostat] 0.4 mg SUBLINGUAL Q5M PRN #30 tab 07/26/22 03/12/24 Rx Losartan [Cozaar] 12.5 mg PO DAILY 09/14/23 03/12/24 History Atorvastatin [Lipitor] 10 mg PO HS 03/12/24 03/12/24 History Cholecalciferol (Vitamin D3) 50 mcg PO DAILY 03/12/24 03/12/24 History [Vitamin D3 (50 Mcg = 2000 Iu)] metFORMIN HCL 1,000 mg PO BID 03/12/24 03/12/24 History Allergies Allergy/AdvReac Type Severity Reaction Status Date / Time levofloxacin [From Levaquin] Allergy Rash/Hives Verified 03/12/24 15:19 Penicillins Allergy Rash/Hives Verified 03/12/24 15:19 Sulfa (Sulfonamide Allergy Rash/Hives Verified 03/12/24 15:19 Antibiotics) Physical Exam Vitals: Vital Signs Temp Pulse Pulse Resp BP Pulse Ox 03/13/24 07:00 62 18 95/50 98 03/13/24 05:00 88 16 131/73 96 03/12/24 23:18 65 18 131/78 93 L 03/12/24 19:17 98.1 F 68 18 129/81 97 03/12/24 15:46 98 F 53 L 18 118/70 100 03/12/24 14:40 68 68 18 148/75 97 03/12/24 13:35 97.8 F 65 16 146/86 99 Results 03/12/24 13:46 03/12/24 13:46 Cardiac Enzymes 03/12/24 03/12/24 03/12/24 Range/Units 13:46 13:46 15:54 AST 22 (14-36) U/L Troponin I <0.012 <0.012 (0.000-0.034) ng/mL 03/12/24 Range/Units 19:28 AST (14-36) U/L Troponin I <0.012 (0.000-0.034) ng/mL Coagulation 03/12/24 Range/Units 13:46 PT 9.8 L (10.0-12.5) sec APTT 24.3 (22.0-30.0) sec CBC 03/12/24 Range/Units 13:46 WBC 7.3 (3.8-10.6) k/uL RBC 4.65 (3.80-5.40) m/uL Hgb 13.8 (11.4-16.0) gm/dL Hct 42.7 (34.0-46.0) % Plt Count 293 (150-450) k/uL Comprehensive Metabolic Panel 03/12/24 Range/Units 13:46 Sodium 139 (137-145) mmol/L Potassium 4.1 (3.5-5.1) mmol/L Chloride 107 (98-107) mmol/L Carbon Dioxide 24 (22-30) mmol/L BUN 5 L (7-17) mg/dL Creatinine 0.44 L (0.52-1.04) mg/dL Glucose 85 (74-99) mg/dL Calcium 10.1 (8.4-10.2) mg/dL AST 22 (14-36) U/L ALT 18 (4-34) U/L Alkaline Phosphatase 58 (38-126) U/L Total Protein 7.5 (6.3-8.2) g/dL Albumin 4.9 (3.5-5.0) g/dL Current Medications Generic Name Dose Route Start Last Admin Trade Name Freq PRN Reason Stop Dose Admin Aspirin 81 mg 03/13/24 09:00 Aspirin 81 Mg PO DAILY ARIEL Atorvastatin Calcium 10 mg 03/13/24 21:00 Atorvastatin 10 Mg Tab PO HS ARIEL Losartan Potassium 12.5 mg 03/13/24 09:00 Losartan 25 Mg Tab PO DAILY ARIEL Nitroglycerin 0.4 mg 03/12/24 15:16 Nitroglycerin Sl Tabs 0.4 Mg Tab SUBLINGUAL Q5M PRN Chest Pain 03/12/24 13:46 03/12/24 13:46
[2024-03-13 11:31] LABS: Chol/HDL Ratio 2.35 Ratio; LDL Cholesterol,Calculated 107.9 mg/dL (0.0-131.0); VLDL Calculation 9.84 mg/dL (5.00-40.00)
--- NOTE | 2024-03-13 13:18 | CA ---
Transthoracic Echo Report Name: Katharina Gonzalez Age: 64 Gender: F : 1960 Exam Date: 03/13/2024 10:52 Exam Location: [facility] [facility] Ht (in): 62 Wt (lb): 140 Ordering Physician: Bailee Montes Attending/Referring Phys: [id number], Jyoti Metropolitan Editor Fany Porter RDCS Procedure CPT: Indications: CP, LV function Cardiac Hx: Technical Quality: Good Contrast 1: Total Dose (mL): Contrast 2: Total Dose (mL): MEASUREMENTS (Male / Female) Normal Values 2D ECHO LV Diastolic Diameter PLAX 3.8 cm 4.2 - 5.9 / 3.9 - 5.3 cm LV Systolic Diameter PLAX 2.5 cm IVS Diastolic Thickness 1.0 cm 0.6 - 1.0 / 0.6 - 0.9 cm LVPW Diastolic Thickness 1.0 cm 0.6 - 1.0 / 0.6 - 0.9 cm LV Relative Wall Thickness 0.5 RV Internal Dim ED PLAX 3.1 cm LA Systolic Diameter LX 3.2 cm 3.0 - 4.0 / 2.7 - 3.8 cm LV Diastolic Volume MOD 4C 56.3 cm??? LV Systolic Volume MOD 4C 23.2 cm??? LV Ejection Fraction MOD 4C 58.8 % LV Cardiac Index MOD 4C 1695.3 cm???/min???m??? LV Diastolic Length 4C 7.6 cm LV Systolic Length 4C 6.6 cm LV Diastolic Volume MOD 2C 74.1 cm??? LV Systolic Volume MOD 2C 20.6 cm??? LV Ejection Fraction MOD 2C 72.1 % LV Cardiac Index MOD 2C 2734.1 cm???/min???m??? LV Diastolic Length 2C 8.1 cm LV Systolic Length 2C 6.0 cm LA Volume 27.3 cm??? 18 - 58 / 22 - 52 cm??? LA Volume Index 16.2 cm???/m??? 16 - 28 cm???/m??? M-MODE Aortic Root Diameter MM 3.2 cm AV Cusp Separation MM 1.9 cm DOPPLER AV Peak Velocity 129.3 cm/s AV Peak Gradient 6.7 mmHg MV Area PHT 5.1 cm??? Mitral E Point Velocity 92.3 cm/s Mitral A Point Velocity 91.2 cm/s Mitral E to A Ratio 1.0 MV Deceleration Time 147.8 ms FINDINGS Left Ventricle Left ventricular ejection fraction is estimated at 55-60 %. Small left ventricular cavity. Mildly increased posterior wall thickness. Normal left ventricular wall motion. Right Ventricle Normal right ventricular size and function. Unable to estimate the right ventricular systolic pressure. Right Atrium Normal right atrial size. No right atrial thrombus or mass seen. Left Atrium Normal left atrial size. No left atrial thrombus or mass present. Mitral Valve Structurally normal mitral valve. No mitral stenosis, regurgitation or prolapse. Aortic Valve Trileaflet aortic valve. No aortic valve stenosis or regurgitation. Tricuspid Valve Structurally normal tricuspid valve. No tricuspid stenosis, regurgitation or prolapse. Pulmonic Valve Structurally normal pulmonic valve. No pulmonic regurgitation. Pericardium No pericardial or pleural effusion. Aorta Normal size aortic root and proximal ascending aorta. CONCLUSIONS Normal biventricular systolic function No significant valvular abnormalities Unable to determine the pulmonary artery systolic pressure No evidence of pericardial effusion Previewed by: Dr. Shaheen Alamo MD (Electronically Signed) Final Date: 13 March 2024 13:18
[2024-03-13] MEDS ORDERED: DEXTROSE 50% SYRINGE 50 ML IVP PRN ×2 (13:48)
--- NOTE | 2024-03-13 13:57 | P.HPIM ---
History of Present Illness H&P Date: 03/13/24 Chief Complaint: Weakness and Chest discomfort Patient is a 64-year-old female with past medical history of diabetes, GERD, multiple sclerosis who presented to the ED for chest tightness and left-sided weakness. She has been feeling weak since the past 1 week. The weakness is mainly on the entire left side of her body and she has not been able to get up on her own. Yesterday she started having chest tightness and heaviness with no radiation. She mentions experiencing similar symptoms a year ago when she had a flareup of her multiple sclerosis. She mentions getting diagnosed with multiple sclerosis 4 years ago and has since had some weakness on the left side of her body. She also gets infusions every 6 months for multiple sclerosis and the last one was 2 months ago. Currently she is experiencing tremors in her left arm and leg as well as numbness and tingling sensation over the entire left side of her body and she isn't able to move out of bed or ambulate on her own. Denies fever, chills, cough, palpitations, abdominal pain, nausea, vomiting, hematuria, hematochezia, melena. She uses a walker at home to ambulate. ED documentation reviewed in the ED she was treated with aspirin 324 mg, magnesium oxide 400 mg, Solu-Medrol, nitroglycerin sublingual tablets. Vitals on admission T 97.8 F, P 65 bpm, RR 16, BP 146/86, O2 sat 99% on room air EKG independently interpreted as sinus rhythm, poor R wave progression, rate 64 bpm, QTc 391 ms Chest x-ray shows no acute cardiopulmonary disease or process Echocardiogram shows EF 55 to 60%, normal biventricular systolic function, no significant valvular abnormalities, no evidence of pericardial effusion, unable to determine pulmonary artery systolic pressure Labs on admission showed WBC 7.3, hemoglobin 13.8, PT 9.8, sodium 139, potassium 4.1, BUN 5, creatinine 0.44, magnesium 1.4 Troponin I <0.012 x 3, D-dimer 0.54 Lipid panel shows triglycerides 49.2, cholesterol 205, LDL 107.9, VLDL 9.84, HDL 87.30 UA unremarkable Review of systems: Pertinent positives and negatives as discussed in HPI, a complete review of systems was performed and all other systems are negative. PMH: Diabetes mellitus, GERD, MS PSH: Cholecystectomy, heart catheterization, tonsillectomy, tubal ligation FMH:CAD in father, Lung cancer in mother Allergies: Penicillin, Levaquin, Sulfa Social history: Tobacco: Never smoker Alcohol: Occasional Recreational drugs: Edible Gummies 1/day Travel: No recent travel history Sick contacts: None Physical examination: Vital signs reviewed General: nontoxic, no distress, appears at stated age Derm: warm, dry, intact Head: atraumatic, normocephalic, symmetric Eyes: EOMI, anicteric sclera Mouth: no lip lesion, mucus membranes moist Cardiovascular: S1 S2 reg, no murmur Lungs: CTA bilateral, no rhonchi, no rales, no accessory muscle use Abdominal: soft, non-tender to palpataion Extremities: No cyanosis, clubbing, or pedal edema. Neuro: Alert, Oriented, strength 5/5 RUE and RLE, 4/5 in LUE and LLE, intention tremors, clumsy movements, marked dysmetria in LUE and LLE on finger to nose test Psych: well appearing, appropriate affect Assessment/Plan: Patient is a 64-year-old female with past medical history of diabetes, GERD, multiple sclerosis who presented to the ED for chest pain with left-sided weakness and has been admitted for further workup of the same. #. Multiple Sclerosis #. Left sided weakness Continue baclofen 10 mg PO BID Solu-Medrol 500 mg IV once given in the ED Neurology consulted #. Atypical chest discomfort, r/o ACS Troponin I<0.012 x 3 and D-dimer 0.54 Echocardiogram shows 55 to 60% EF, normal biventricular systolic function Lipid panel shows triglycerides 49.2, cholesterol 205, LDL 107.9, VLDL 9.84, HDL 87.30 Aspirin 325 mg p.o. once in the ED Continue aspirin 81 mg p.o. daily and atorvastatin 10 mg p.o. at bedtime and nitroglycerin sublingual tablets 0.4 mg Q5M as needed Continue telemetry monitoring Cardiology is following #. Hypomagnesemia Magnesium oxide 400 mg p.o. once in the ED Mg improved to 1.6 #. Hypertension Continue losartan 12.5 mg p.o. daily #. Non insulin dependent diabetes mellitus Low dose Insulin sliding scale with ACHS blood glucose monitoring F: None E: Magnesium repleted N: Heart healthy diet A: Bedrest, advance activity as tolerated on day 2 DVT prophylaxis: Enoxaparin 40 mg SQ daily and SCD GI prophylaxis: Pantoprazole 40 mg PO daily The patient is admitted with an anticipated less than 2 midnight stay for evaluation of chest pain CODE STATUS: Full code Discussed with: Patient Anticipated discharge place: Home Attestation: I have personally seen and examined the patient with Resident, reviewed the documentation and participated and agree with the assessment and plan as written. Yfn Doty MD Past Medical History Past Medical History: Diabetes Mellitus, GERD/Reflux, Neurologic Disorder Additional Past Medical History / Comment(s): MS, Left sided weakness History of Any Multi-Drug Resistant Organisms: None Reported Past Surgical History: Cholecystectomy, Heart Catheterization, Tonsillectomy, T ubal Ligation, Uterine Ablation Additional Past Surgical History / Comment(s): Cardiac cath 12/2012. 2- D&C Past Anesthesia/Blood Transfusion Reactions: Postoperative Nausea & Vomiting (PONV) Past Psychological History: No Psychological Hx Reported Smoking Status: Never smoker - Past Family History Mother Family Medical History: Cancer Additional Family Medical History / Comment(s): Lung Medications and Allergies Home Medications Medication Instructions Recorded Confirmed Type Omeprazole 20 mg PO DAILY 10/04/13 03/12/24 History sitaGLIPtin PHOSPHATE [Januvia] 100 mg PO DAILY 10/04/13 03/12/24 History Ascorbic Acid [Vitamin C] 1,000 mg PO BID 07/25/22 03/12/24 History Aspirin EC [Ecotrin Low Dose] 81 mg PO DAILY 07/25/22 03/12/24 History Baclofen 10 mg PO BID 07/25/22 03/12/24 History Cyanocobalamin [Vitamin B-12] 1,000 mcg PO DAILY 07/25/22 03/12/24 History Vitamin E (Dl,Tocopheryl Acet) 400 unit PO DAILY 07/25/22 03/12/24 History [Vitamin E (400 Iu = 180 mg)] Nitroglycerin Sl Tabs [Nitrostat] 0.4 mg SUBLINGUAL Q5M PRN #30 tab 07/26/22 03/12/24 Rx Losartan [Cozaar] 12.5 mg PO DAILY 09/14/23 03/12/24 History Atorvastatin [Lipitor] 10 mg PO HS 03/12/24 03/12/24 History Cholecalciferol (Vitamin D3) 50 mcg PO DAILY 03/12/24 03/12/24 History [Vitamin D3 (50 Mcg = 2000 Iu)] metFORMIN HCL 1,000 mg PO BID 03/12/24 03/12/24 History Allergies Allergy/AdvReac Type Severity Reaction Status Date / Time levofloxacin [From Levaquin] Allergy Rash/Hives Verified 03/12/24 15:19 Penicillins Allergy Rash/Hives Verified 03/12/24 15:19 Sulfa (Sulfonamide Allergy Rash/Hives Verified 03/12/24 15:19 Antibiotics) Physical Exam Vitals: Vital Signs Temp Pulse Pulse Resp BP Pulse Ox 03/13/24 07:00 62 18 95/50 98 03/13/24 05:00 88 16 131/73 96 03/12/24 23:18 65 18 131/78 93 L 03/12/24 19:17 98.1 F 68 18 129/81 97 03/12/24 15:46 98 F 53 L 18 118/70 100 03/12/24 14:40 68 68 18 148/75 97 03/12/24 13:35 97.8 F 65 16 146/86 99 Results CBC & Chem 7: 03/12/24 13:46 03/12/24 13:46 Labs: Abnormal Lab Results - Last 24 Hours (Table) 03/12/24 03/12/24 03/12/24 Range/Units 13:46 13:46 18:50 PT 9.8 L (10.0-12.5) sec BUN 5 L (7-17) mg/dL Creatinine 0.44 L (0.52-1.04) mg/dL POC Glucose (mg/dL) 142 H (70-110) mg/dL Magnesium 1.4 L (1.6-2.3) mg/dL
[2024-03-13 16:36] LABS: Glucose,Whole Blood 226 mg/dL (70-110)
[2024-03-13] MEDS: INSULIN ASPART (NovoLOG) 100 UNIT/ML VIAL SQ SCH (18:17)
[2024-03-13 20:34] LABS: Glucose,Whole Blood 129 mg/dL (70-110)
[2024-03-13] MEDS: ATORVASTATIN 10 MG TAB PO SCH (21:59)
[2024-03-13] MEDS: methylPREDNISolone SOD SUCCIN 1,000 MG in SODIUM CHLORIDE 0.9% 250 ML IVPB SCH (21:59)
[2024-03-13] MEDS: BACLOFEN 10 MG TAB PO SCH (21:59)
[2024-03-14 06:23] LABS: Glucose,Whole Blood 286 mg/dL (70-110)
[2024-03-14] MEDS: PANTOPRAZOLE 40 MG TABLET PO SCH (06:28)
[2024-03-14 06:57] LABS: HCT 42.7 % (34.0-46.0); HGB 13.5 gm/dL (11.4-16.0); MCH 29.7 pg (25.0-35.0); MCHC 31.6 g/dL (31.0-37.0); MCV 93.7 fL (80.0-100.0); Mean Platelet Volume 7.8; Platelet Count 300 k/uL (150-450); RBC 4.55 m/uL (3.80-5.40); RDW 13.5 % (11.5-15.5); WBC 11.4 k/uL (3.8-10.6)
[2024-03-14 07:09] LABS: African American GFR (CKD) >90 (>60 ml/min/1.73 sqM); Anion Gap 10 mmol/L; Blood Urea Nitrogen 13 mg/dL (7-17); Calcium 9.8 mg/dL (8.4-10.2); Carbon Dioxide 26 mmol/L (22-30); Chloride 104 mmol/L (98-107); Glucose 305 mg/dL (74-99); Non-African American GFR(CKD) >90 (>60 ml/min/1.73 sqM); Potassium 4.1 mmol/L (3.5-5.1); Sodium 140 mmol/L (137-145)
[2024-03-14] MEDS: ENOXAPARIN 40 MG/0.4 ML SYRINGE SQ SCH (08:35)
--- NOTE | 2024-03-14 09:13 | P.CNNES ---
History of Present Illness Consult date: 03/13/24 Requesting physician: Sid Khan Reason for Consult: Multiple sclerosis History of Present Illness: Patient is a 64-year-old left handed female who was diagnosed with MS in 2013 when she presented with acute onset of left hemiparesis. Initially stroke was suspected, but with further testing, she was diagnosed with MS. Patient follows up with Dr. Trotter, and has been receiving Ocrevus every 6 months since then. The last infusion was in January 2024. She is also on baclofen, and has not tried any other disease modifying agent besides Ocrevus. Patient has pins and needle sensation involving left half of the body. Patient at baseline does not use any assistive device for walking, except if she goes outside, she hangs onto her . However in the last 1 week, she has to hang onto the even inside her house and has been using a walker if he is not there. She is having difficulty with stepping with the left leg. She takes a step with the right foot and the left leg does not want to move. This is what happens with her MS exacerbation. The last exacerbation was about a year ago. Yesterday she started feeling some chest pain, problem focusing on something and felt will tip over. Left side is worse than baseline. Due to these reasons, she came to the hospital yesterday at 1:21 PM. Vital signs on arrival blood pressure 146/86 pulse rate 65 temperature 97.8. Blood test shows normal CBC, PT PTT, normal CMP, troponin and UA is completely benign. Cholesterol 205, LDL 107, HDL 87 and triglycerides 49. EKG showed sinus rhythm. Chest x-ray showed no acute cardiopulmonary process. Patient had a normal EEG on 10/10/2013. Patient's last B12 1003 and 22 on 11/21/2021. Patient denies any tobacco use. She drinks alcohol very rarely. She uses CBD Gummies sometimes. Patient had previous MRI of the brain with contrast on 03/01/2014, which revealed stable diffuse white matter changes, compatible with demyelinating disease. No interval change in size number or morphology lesions. Previously noted enhancing lesions within the left frontal lobe are not identified. No other enhancing lesions. Patient's MRI of the cervical and thoracic spine re vealed no evidence of demyelinating disease in the cervical spine. There is a short segment central canal prominence or small syrinx in the lower thoracic spine. Patient follows up with Dr. Trotter Review of Systems All pertinent positive and negative mentioned in the HPI. Patient has weakness, numbness, balance issues, chest pain. Past Medical History Past Medical History: Diabetes Mellitus, GERD/Reflux, Neurologic Disorder Additional Past Medical History / Comment(s): MS, Left sided weakness History of Any Multi-Drug Resistant Organisms: None Reported Past Surgical History: Cholecystectomy, Heart Catheterization, Tonsillectomy, Tubal Ligation, Uterine Ablation Additional Past Surgical History / Comment(s): Cardiac cath 12/2012. 2- D&C Past Anesthesia/Blood Transfusion Reactions: Postoperative Nausea & Vomiting (PONV) Past Psychological History: No Psychological Hx Reported Smoking Status: Never smoker - Past Family History Mother Family Medical History: Cancer Additional Family Medical History / Comment(s): Lung Medications and Allergies Home Medications Medication Instructions Recorded Confirmed Type Omeprazole 20 mg PO DAILY 10/04/13 03/12/24 History sitaGLIPtin PHOSPHATE [Januvia] 100 mg PO DAILY 10/04/13 03/12/24 History Ascorbic Acid [Vitamin C] 1,000 mg PO BID 07/25/22 03/12/24 History Aspirin EC [Ecotrin Low Dose] 81 mg PO DAILY 07/25/22 03/12/24 History Baclofen 10 mg PO BID 07/25/22 03/12/24 History Cyanocobalamin [Vitamin B-12] 1,000 mcg PO DAILY 07/25/22 03/12/24 History Vitamin E (Dl,Tocopheryl Acet) 400 unit PO DAILY 07/25/22 03/12/24 History [Vitamin E (400 Iu = 180 mg)] Nitroglycerin Sl Tabs [Nitrostat] 0.4 mg SUBLINGUAL Q5M PRN #30 tab 07/26/22 03/12/24 Rx Losartan [Cozaar] 12.5 mg PO DAILY 09/14/23 03/12/24 History Atorvastatin [Lipitor] 10 mg PO HS 03/12/24 03/12/24 History Cholecalciferol (Vitamin D3) 50 mcg PO DAILY 03/12/24 03/12/24 History [Vitamin D3 (50 Mcg = 2000 Iu)] metFORMIN HCL 1,000 mg PO BID 03/12/24 03/12/24 History Allergies Allergy/AdvReac Type Severity Reaction Status Date / Time levofloxacin [From Levaquin] Allergy Rash/Hives Verified 03/12/24 15:19 Penicillins Allergy Rash/Hives Verified 03/12/24 15:19 Sulfa (Sulfonamide Allergy Rash/Hives Verified 03/12/24 15:19 Antibiotics) Physical Examination - Vital Signs Vital Signs: Vital Signs Temp Pulse Pulse Resp BP BP Pulse Ox 03/13/24 15:40 83 15 104/57 97 03/13/24 14:37 98.7 F 94 18 123/57 98 03/13/24 14:00 68 03/13/24 12:00 72 16 118/58 97 03/13/24 08:00 62 16 03/13/24 07:00 62 18 95/50 98 03/13/24 05:00 88 16 131/73 96 03/12/24 23:18 65 18 131/78 93 L 03/12/24 19:17 98.1 F 68 18 129/81 97 Intake and Output 03/13/24 03/13/24 03/13/24 06:59 14:59 22:59 Intake Total 118 Balance 118 Intake: Oral 118 Other: Voiding Method Toilet Toilet Weight 63.503 kg Patient is a late middle-aged female, very pleasant, in no acute distress. Patient is alert awake oriented to time place and person. Speech and language functions are normal. Patient can name and repeat very well. No aphasia or dysarthria. Attention, concentration and fund of knowledge is adequate. On cranial nerve examination, pupils are equal, round and reacting to light, visual [place] are full on confrontation, with no neglect on double simultaneous stimulation. Extraocular muscles are intact with no nystagmus. Patient has slight left facial asymmetry, but appears normal on active testing. Her tongue protrudes to the midline. Palatal elevation and sensation normal, hearing and shoulder shrug normal, facial sensation normal. On muscle strength testing, there is left pronator drift about 30 degree. Her left arm appears very spastic. However the strength is completely normal in arms and legs distally and proximally bilaterally. I did not notice any difference between the left and right sided strength. Deep tendon reflexes are asymmetric (right/left) biceps 1+/2+, brachioradialis 1+/2+, knees 3/3, plantar is down on the right, up on the left. Sensory to touch is equal with no neglect on double simultaneous stimulation. Cerebellar function showed severe ataxia for [id number] and [id number] testing on the left side. Patient has mild ataxia on the right side as well. Tone is increased on the left side of the body and bulk of muscles normal. Gait deferred.. On general examination, there is no carotid bruit or murmur, S1-S2 audible. Chest is clear on consultation. Abdomen is soft nontender. No organomegaly, bowel sounds present. Peripheral pulses are present. No peripheral edema. Results - Laboratory Findings CBC and BMP: 03/14/24 06:31 03/14/24 06:31 Abnormal Lab Findings: Abnormal Labs 03/12/24 03/12/24 03/12/24 13:46 13:46 18:50 PT 9.8 L BUN 5 L Creatinine 0.44 L POC Glucose (mg/dL) 142 H Magnesium 1.4 L Cholesterol HDL Cholesterol 03/13/24 03/13/24 06:45 16:34 PT BUN Creatinine POC Glucose (mg/dL) 226 H Magnesium Cholesterol 205.00 H HDL Cholesterol 87.30 H Assessment and Plan Assessment: * Probable MS exacerbation. Patient has developed worsening of her left-sided weakness, balance. No obvious infection identified that could produce recrudescence. * Multiple sclerosis * Atypical chest pain * Hypertension * Diabetes * Hyperlipidemia Plan: * Patient probably has developed acute MS exacerbation. Patient had an MRI of the brain performed at her neurologist office couple months ago, therefore we will not repeat it at this time. * Start Solu-Medrol 1 g IVPB daily for 3-5 days. * Patient on Protonix for prophylaxis * DVT prophylaxis: Lovenox 40 mg subcu daily * B12, folate, TSH * Continue Lipitor 10 mg and aspirin 81 mg. * Patient had 2D echo, which revealed normal biventricular systolic function. No significant valvular abnormalities. EF is 55 to 60%. Normal atrial size. * PT OT. * Neurology will follow. Thank you for the consult.
[2024-03-14 11:41] LABS: Glucose,Whole Blood 325 mg/dL (70-110)
--- NOTE | 2024-03-14 12:36 | P.PN ---
Subjective HISTORY OF PRESENT ILLNESS: This is a 64-year-old female with a past medical history significant for multiple sclerosis (diagnosed approximately 4 years ago) , hypertension, hyperlipidemia, and diabetes. 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 We have been asked to see the patient in consultation for chest pain. Patient examined at the bedside in the emergency room. Patient states for the past week she has been feeling unwell. She states that her breathing felt tight and she had heavy breathing. She denied having any chest discomfort. She states for the past 3 to 4 days she has gotten increasingly weak and has been unable to walk without a walker. She contacted her neurologist to try to get an appointment but was unable to be seen so she came to the emergency room for further evaluation. Patient also reports having a hard time focusing at home. At the time of examination, she denies chest pain or pressure. She denies shortness of breath. She is a non-smoker. Vital signs are stable. DIAGNOSTICS: - EKG reveals sinus mechanism with no signs of acute ischemia - Chest xray negative for acute process - Laboratory data: WBC 7.3. Hemoglobin 13.8. Platelet count 293. D-dimer 0.54. Sodium 139. Potassium 4.1. BUN 5. Creatinine 0.44. Troponin negative x 3. - Current home cardiac medications include aspirin 81 mg daily, losartan 12.5 mg daily, atorvastatin 10 mg at night - Most recent echocardiogram obtained in June 2022 revealed ejection fraction 60 to 65%, trace MR, trace to mild TR - Cardiac catheterization history: 2012 revealing normal coronary arteries - Patient underwent Lexiscan stress test in July 2023 which was negative for ischemia 03/14/2024 Patient examined this morning bedside. Patient currently denies chest pain or pressure. She denies shortness of breath. Vital signs are stable. She has been started on steroids. She reports her weakness is improving. 2D echo completed revealing ejection fraction 55 to 60% with no significant valvular abnormalities noted. PHYSICAL EXAM: VITAL SIGNS: Reviewed. GENERAL: Well-developed in no acute distress. HEENT: Head is normocephalic. Pupils are equal, round. Sclerae anicteric. Mucous membranes of the mouth are moist. Neck supple. No JVD or thyromegaly LUNGS: Respirations even and unlabored. Lungs essentially clear to auscultation bilaterally. HEART: Regular rate and rhythm. S1 and S2 heard. ABDOMEN: Soft. Nondistended. Nontender. EXTREMITIES: Normal range of motion. No clubbing or cyanosis. Peripheral pulses intact. No lower extremity edema NEUROLOGIC: Awake and alert. Oriented x 3. ASSESSMENT: Generalized weakness x 1 week Atypical chest discomfort, patient reports heavy breathing but denied chest discomfort, troponin negative x 3 Multiple sclerosis exacerbation Normal coronary arteries, per cardiac catheterization, 2013 Hypertension Hyperlipidemia Diabetes PLAN: An acute coronary event has been ruled out 2D echo obtained and reviewed Continue current cardiac medications Patient is currently stable from a cardiac standpoint with no further inpatient recommendations We will sign off. Please reconsult if needed. Nurse practitioner note has been reviewed by physician. Signing provider agrees with the documented findings, assessment, and plan of care documented by [employer] as a scribe. Objective - Vital Signs Vital signs: Vital Signs Temp 97.6 F 03/14/24 11:09 Pulse 70 03/14/24 11:09 Resp 17 03/14/24 11:09 BP 110/60 03/14/24 11:09 Pulse Ox 99 03/14/24 11:09 FiO2 Intake & Output 03/13/24 03/14/24 03/14/24 18:59 06:59 18:59 Intake Total 118 20 368 Balance 118 20 368 Weight 63.503 kg 62.5 kg Intake: IV 20 10 Invasive Line 1 20 10 Oral 118 358 Other: Voiding Method Toilet Toilet Toilet # Voids 2 - Labs CBC & Chem 7: 03/14/24 06:31 03/14/24 06:31 Labs: Abnormal Lab Results - Last 24 Hours (Table) 03/13/24 03/13/24 03/14/24 Range/Units 16:34 20:32 06:22 WBC (3.8-10.6) k/uL Glucose (74-99) mg/dL POC Glucose (mg/dL) 226 H 129 H 286 H (70-110) mg/dL Hemoglobin A1c (<=6.0) % 03/14/24 03/14/24 03/14/24 Range/Units 06:31 06:31 06:31 WBC 11.4 H (3.8-10.6) k/uL Glucose 305 H (74-99) mg/dL POC Glucose (mg/dL) (70-110) mg/dL Hemoglobin A1c 6.2 H (<=6.0) % 03/14/24 Range/Units 11:39 WBC (3.8-10.6) k/uL Glucose (74-99) mg/dL POC Glucose (mg/dL) 325 H (70-110) mg/dL Hemoglobin A1c (<=6.0) %
[2024-03-14 13:52] LABS: T4, Free (Free Thyroxine) 1.47 ng/dL (0.78-2.19)
--- NOTE | 2024-03-14 14:47 | P.PN ---
Subjective Progress Note Date: 03/14/24 Principal diagnosis: Hospital course: Patient is a 64-year-old female with past medical history of diabetes, GERD, multiple sclerosis who presented to the ED for chest tightness and left-sided weakness. She has been feeling weak since the past 1 week. The weakness is mainly on the entire left side of her body and she has not been able to get up on her own. Yesterday she started having chest tightness and heaviness with no radiation. She mentions experiencing similar symptoms a year ago when she had a flareup of her multiple sclerosis. She mentions getting diagnosed with multiple sclerosis 4 years ago and has since had some weakness on the left side of her body. She also gets infusions every 6 months for multiple sclerosis and the last one was 2 months ago. Currently she is experiencing tremors in her left arm and leg as well as numbness and tingling sensation over the entire left side of her body and she isn't able to move out of bed or ambulate on her own. Denies fever, chills, cough, palpitations, abdominal pain, nausea, vomiting, hematuria, hematochezia, melena. She uses a walker at home to ambulate. ED documentation reviewed in the ED she was treated with aspirin 324 mg, magnesium oxide 400 mg, Solu-Medrol, nitroglycerin sublingual tablets. Vitals on admission T 97.8 F, P 65 bpm, RR 16, BP 146/86, O2 sat 99% on room air EKG independently interpreted as sinus rhythm, poor R wave progression, rate 64 bpm, QTc 391 ms Chest x-ray shows no acute cardiopulmonary disease or process Echocardiogram shows EF 55 to 60%, normal biventricular systolic function, no significant valvular abnormalities, no evidence of pericardial effusion, unable to determine pulmonary artery systolic pressure Labs on admission showed WBC 7.3, hemoglobin 13.8, PT 9.8, sodium 139, potassium 4.1, BUN 5, creatinine 0.44, magnesium 1.4 Troponin I <0.012 x 3, D-dimer 0.54 Lipid panel shows triglycerides 49.2, cholesterol 205, LDL 107.9, VLDL 9.84, HDL 87.30 UA unremarkable 03/14/24: Patient seen and examined at bedside today. No acute events overnight. Labs today show WBC 11.4, sodium 140, glucose 305. Patient had an MRI of the brain performed at her neurologist office couple months ago. TSH is 0.397, free T4 is 1.47, and A1c is 6.2. Review of systems: Pertinent positives and negatives as discussed in HPI, a complete review of systems was performed and all other systems are negative. Vitals: Signs Reviewed Physical examination: General: nontoxic, no distress, appears at stated age Derm: warm, dry, intact Head: atraumatic, normocephalic, symmetric Eyes: EOMI, anicteric sclera Mouth: no lip lesion, mucus membranes moist Cardiovascular: S1 S2 reg, no murmur Lungs: CTA bilateral, no rhonchi, no rales, no accessory muscle use Abdominal: soft, non-tender to palpataion Extremities: No cyanosis, clubbing, or pedal edema. Neuro: Alert, Oriented, strength 5/5 RUE and RLE, 4/5 in LUE and LLE, intention tremors, clumsy movements, marked dysmetria in LUE and LLE on finger to nose test Psych: well appearing, appropriate affect Assessment/Plan: Patient is a 64-year-old female with past medical history of diabetes, GERD, multiple sclerosis who presented to the ED for chest pain with left-sided weakness and has been admitted for further workup of the same. #. Acute MS exacerbation Continue baclofen 10 mg PO BID Continue Solumedrol 1 g IVPB daily for 3-5 days Folate and B12 pending Neurology is following PT consulted #. Atypical chest discomfort, r/o ACS ACS is ruled out Troponin I<0.012 x 3 and D-dimer 0.54 Echocardiogram shows 55 to 60% EF, normal biventricular systolic function Lipid panel shows triglycerides 49.2, cholesterol 205, LDL 107.9, VLDL 9.84, HDL 87.30 Continue aspirin 81 mg p.o. daily and atorvastatin 10 mg p.o. at bedtime and nitroglycerin sublingual tablets 0.4 mg Q5M as needed Continue telemetry monitoring #. Hypomagnesemia Magnesium oxide 400 mg p.o. once in the ED Mg improved to 1.6 #. Hypertension Continue losartan 12.5 mg p.o. daily #. Non insulin dependent diabetes mellitus A1c 6.2 Levemir 5 units SQ HS added Continue home meds Metformin 1000 mg p.o. twice daily with meals and Linagliptin 5 mg p.o. daily Continue Low dose Insulin sliding scale with ACHS blood glucose monitoring F: None E: Replete as required N: Heart healthy diet A: Bedrest, advance activity as tolerated DVT prophylaxis: Enoxaparin 40 mg SQ daily and SCD GI prophylaxis: Pantoprazole 40 mg PO daily Attestation: I have personally seen and examined the patient with Resident, reviewed the documentation and participated and agree with the assessment and plan as written. Yfn Doty MD Objective - Vital Signs Vital signs: Vital Signs Temp 97.6 F 03/14/24 04:00 Pulse 62 03/14/24 04:00 Resp 15 03/14/24 04:00 BP 116/67 03/14/24 04:00 Pulse Ox 98 03/14/24 04:00 FiO2 Intake & Output 03/13/24 03/14/24 03/14/24 18:59 06:59 18:59 Intake Total 118 20 Balance 118 20 Weight 63.503 kg 62.5 kg Intake: IV 20 Invasive Line 1 20 Oral 118 Other: Voiding Method Toilet Toilet # Voids 2 - Labs CBC & Chem 7: 03/14/24 06:31 03/14/24 06:31 Labs: Abnormal Lab Results - Last 24 Hours (Table) 03/13/24 03/13/24 03/13/24 Range/Units 06:45 16:34 20:32 WBC (3.8-10.6) k/uL Glucose (74-99) mg/dL POC Glucose (mg/dL) 226 H 129 H (70-110) mg/dL Cholesterol 205.00 H (0.00-200.00) mg/dL HDL Cholesterol 87.30 H (40.00-60.00) mg/dL 03/14/24 03/14/24 03/14/24 Range/Units 06:22 06:31 06:31 WBC 11.4 H (3.8-10.6) k/uL Glucose 305 H (74-99) mg/dL POC Glucose (mg/dL) 286 H (70-110) mg/dL Cholesterol (0.00-200.00) mg/dL HDL Cholesterol (40.00-60.00) mg/dL
[2024-03-14 16:34] LABS: Glucose,Whole Blood 265 mg/dL (70-110)
[2024-03-14] MEDS: metFORMIN 500 MG TAB PO SCH (17:30)
[2024-03-14 20:11] LABS: Glucose,Whole Blood 208 mg/dL (70-110)
[2024-03-14] MEDS: INSULIN DETEMIR (LEVEMIR) 100 UNIT/ML SYR SQ SCH (20:54)
[2024-03-15 06:06] LABS: Glucose,Whole Blood 168 mg/dL (70-110)
[2024-03-15 07:33] LABS: HCT 39.5 % (34.0-46.0); HGB 12.6 gm/dL (11.4-16.0); MCH 29.6 pg (25.0-35.0); MCV 92.6 fL (80.0-100.0); Mean Platelet Volume 7.6; Platelet Count 290 k/uL (150-450); RBC 4.27 m/uL (3.80-5.40); WBC 16.8 k/uL (3.8-10.6)
[2024-03-15 08:07] LABS: African American GFR (CKD) >90 (>60 ml/min/1.73 sqM); Anion Gap 8 mmol/L; Blood Urea Nitrogen 12 mg/dL (7-17); Carbon Dioxide 28 mmol/L (22-30); Chloride 104 mmol/L (98-107); Glucose 148 mg/dL (74-99); Non-African American GFR(CKD) >90 (>60 ml/min/1.73 sqM); Sodium 140 mmol/L (137-145)
[2024-03-15] MEDS: LINAGLIPTIN 5 MG TABLET PO SCH (08:11)
--- NOTE | 2024-03-15 10:45 | P.PN ---
Subjective Progress Note Date: 03/14/24 Patient was seen for a follow-up. Patient has received 2 doses of high-dose steroids Solu-Medrol 1 g IVPB daily. Patient is doing much better. Patient states that she was using walker and was able to walk and stand, not needed that much help. She feels overall much better. Objective - Vital Signs Vital signs: Vital Signs Temp 97.8 F 03/14/24 19:21 Pulse 71 03/14/24 19:21 Resp 15 03/14/24 19:21 BP 122/63 03/14/24 19:21 Pulse Ox 98 03/14/24 19:21 FiO2 Intake & Output 03/14/24 03/14/24 03/15/24 06:59 18:59 06:59 Intake Total 20 614 Balance 20 614 Weight 62.5 kg Intake: IV 20 20 Invasive Line 1 20 20 Oral 594 Other: Voiding Method Toilet Toilet # Voids 2 2 - Exam Patient states she is feeling better. Detailed examination deferred. Mentation is normal. - Labs CBC & Chem 7: 03/15/24 06:52 03/15/24 06:52 Labs: Abnormal Lab Results - Last 24 Hours (Table) 03/13/24 03/14/24 03/14/24 Range/Units 20:32 06:22 06:31 WBC (3.8-10.6) k/uL Glucose (74-99) mg/dL POC Glucose (mg/dL) 129 H 286 H (70-110) mg/dL Hemoglobin A1c 6.2 H (<=6.0) % TSH (0.465-4.680) mIU/L 03/14/24 03/14/24 03/14/24 Range/Units 06:31 06:31 06:31 WBC 11.4 H (3.8-10.6) k/uL Glucose 305 H (74-99) mg/dL POC Glucose (mg/dL) (70-110) mg/dL Hemoglobin A1c (<=6.0) % TSH 0.397 L (0.465-4.680) mIU/L 03/14/24 03/14/24 Range/Units 11:39 16:32 WBC (3.8-10.6) k/uL Glucose (74-99) mg/dL POC Glucose (mg/dL) 325 H 265 H (70-110) mg/dL Hemoglobin A1c (<=6.0) % TSH (0.465-4.680) mIU/L Assessment and Plan Assessment: * Probable MS exacerbation. Patient has developed worsening of her left-sided weakness, balance. No obvious infection identified that could produce recrudescence. * Multiple sclerosis * Atypical chest pain * Hypertension * Diabetes * Hyperlipidemia Plan: * Patient probably has developed acute MS exacerbation. Patient had an MRI of the brain performed at her neurologist office couple months ago, therefore we will not repeat it at this time. * Start Solu-Medrol 1 g IVPB daily for 3-5 days. Patient has received 2/5 doses of Solu-Medrol. She is doing better. * Patient on Protonix for prophylaxis * DVT prophylaxis: Lovenox 40 mg subcu daily * B12 751, folate 9.5, TSH 0.397, free T41.47. We will defer to IM to address abnormal thyroid functions. * Continue Lipitor 10 mg and aspirin 81 mg. * Patient had 2D echo, which revealed normal biventricular systolic function. No significant valvular abnormalities. EF is 55 to 60%. Normal atrial size. * PT OT.
[2024-03-15 11:50] LABS: Glucose,Whole Blood 139 mg/dL (70-110)
--- NOTE | 2024-03-15 13:58 | P.PN ---
Subjective Progress Note Date: 03/15/24 Principal diagnosis: Hospital course: Patient is a 64-year-old female with past medical history of diabetes, GERD, multiple sclerosis who presented to the ED for chest tightness and left-sided weakness. She has been feeling weak since the past 1 week. The weakness is mainly on the entire left side of her body and she has not been able to get up on her own. Yesterday she started having chest tightness and heaviness with no radiation. She mentions experiencing similar symptoms a year ago when she had a flareup of her multiple sclerosis. She mentions getting diagnosed with multiple sclerosis 4 years ago and has since had some weakness on the left side of her body. She also gets infusions every 6 months for multiple sclerosis and the last one was 2 months ago. Currently she is experiencing tremors in her left arm and leg as well as numbness and tingling sensation over the entire left side of her body and she isn't able to move out of bed or ambulate on her own. Denies fever, chills, cough, palpitations, abdominal pain, nausea, vomiting, hematuria, hematochezia, melena. She uses a walker at home to ambulate. ED documentation reviewed in the ED she was treated with aspirin 324 mg, magnesium oxide 400 mg, Solu-Medrol, nitroglycerin sublingual tablets. Vitals on admission T 97.8 F, P 65 bpm, RR 16, BP 146/86, O2 sat 99% on room air EKG independently interpreted as sinus rhythm, poor R wave progression, rate 64 bpm, QTc 391 ms Chest x-ray shows no acute cardiopulmonary disease or process Echocardiogram shows EF 55 to 60%, normal biventricular systolic function, no significant valvular abnormalities, no evidence of pericardial effusion, unable to determine pulmonary artery systolic pressure Labs on admission showed WBC 7.3, hemoglobin 13.8, PT 9.8, sodium 139, potassium 4.1, BUN 5, creatinine 0.44, magnesium 1.4 Troponin I <0.012 x 3, D-dimer 0.54 Lipid panel shows triglycerides 49.2, cholesterol 205, LDL 107.9, VLDL 9.84, HDL 87.30 UA unremarkable 03/14/24: Patient seen and examined at bedside today. No acute events overnight. Labs today show WBC 11.4, sodium 140, glucose 305. Patient had an MRI of the brain performed at her neurologist office couple months ago. TSH is 0.397, free T4 is 1.47, and A1c is 6.2. 03/15/24: Patient seen and evaluated today. No acute events overnight. No new complaints today. Labs today show WBC 16.8, glucose 148. Vitamin B12 is 751 and folate is 9.50. Review of systems: Pertinent positives and negatives as discussed in HPI, a complete review of systems was performed and all other systems are negative. Vitals: Signs Reviewed Physical examination: General: nontoxic, no distress, appears at stated age Derm: warm, dry, intact Head: atraumatic, normocephalic, symmetric Eyes: EOMI, anicteric sclera Mouth: no lip lesion, mucus membranes moist Cardiovascular: S1 S2 reg, no murmur Lungs: CTA bilateral, no rhonchi, no rales, no accessory muscle use Abdominal: soft, non-tender to palpataion Extremities: No cyanosis, clubbing, or pedal edema. Neuro: Alert, Oriented, strength 5/5 RUE and RLE, 4/5 in LUE and LLE, intention tremors, clumsy movements, marked dysmetria in LUE and LLE on finger to nose test Psych: well appearing, appropriate affect Assessment/Plan: Patient is a 64-year-old female with past medical history of diabetes, GERD, multiple sclerosis who presented to the ED for chest pain with left-sided weakness and has been admitted for acute multiple sclerosis exacerbation and is being treated with IV Solu-Medrol. #. Acute MS exacerbation Continue baclofen 10 mg PO BID Continue Solumedrol 1 g IVPB daily for 3-5 days Neurology is following PT recommended home with spouse and home care PT #. Atypical chest discomfort, r/o ACS ACS is ruled out Troponin I<0.012 x 3 and D-dimer 0.54 Echocardiogram shows 55 to 60% EF, normal biventricular systolic function Lipid panel shows triglycerides 49.2, cholesterol 205, LDL 107.9, VLDL 9.84, HDL 87.30 Continue aspirin 81 mg p.o. daily and atorvastatin 10 mg p.o. at bedtime and nitroglycerin sublingual tablets 0.4 mg Q5M as needed Continue telemetry monitoring #. Hypertension Continue losartan 12.5 mg p.o. daily #. Non insulin dependent diabetes mellitus A1c 6.2 Continue Levemir 5 units SQ HS Continue home meds Metformin 1000 mg p.o. twice daily with meals and Linagliptin 5 mg p.o. daily Continue Low dose Insulin sliding scale with ACHS blood glucose monitoring #. Hypomagnesemia, resolved F: None E: Replete as required N: Heart healthy diet A: Bedrest, advance activity as tolerated DVT prophylaxis: Enoxaparin 40 mg SQ daily and SCD GI prophylaxis: Pantoprazole 40 mg PO daily Attestation I have seen and examined this patient with my resident , discussed the same with the resident/LUCILLE, and agree with the dictator's assessment and plan as written Dr. Hugo guerrero Objective - Vital Signs Vital signs: Vital Signs Temp 97.7 F 03/15/24 04:00 Pulse 62 03/15/24 04:00 Resp 15 03/15/24 04:00 BP 116/67 03/15/24 04:00 Pulse Ox 98 03/15/24 04:00 FiO2 Intake & Output 03/14/24 03/15/24 03/15/24 18:59 06:59 18:59 Intake Total 614 20 Balance 614 20 Weight 63.5 kg Intake: IV 20 20 Invasive Line 1 20 20 Oral 594 Other: Voiding Method Toilet Toilet # Voids 2 1 - Labs CBC & Chem 7: 03/16/24 06:36 03/15/24 06:52 Labs: Abnormal Lab Results - Last 24 Hours (Table) 03/14/24 03/14/24 03/14/24 Range/Units 06:31 06:31 11:39 POC Glucose (mg/dL) 325 H (70-110) mg/dL Hemoglobin A1c 6.2 H (<=6.0) % TSH 0.397 L (0.465-4.680) mIU/L 03/14/24 03/14/24 03/15/24 Range/Units 16:32 20:09 06:04 POC Glucose (mg/dL) 265 H 208 H 168 H (70-110) mg/dL Hemoglobin A1c (<=6.0) % TSH (0.465-4.680) mIU/L
[2024-03-15 16:29] LABS: Glucose,Whole Blood 334 mg/dL (70-110)
[2024-03-15 20:16] LABS: Glucose,Whole Blood 293 mg/dL (70-110)
[2024-03-16 06:17] LABS: Glucose,Whole Blood 153 mg/dL (70-110)
[2024-03-16 07:00] LABS: HCT 38.1 % (34.0-46.0); HGB 12.4 gm/dL (11.4-16.0); MCH 29.9 pg (25.0-35.0); MCHC 32.6 g/dL (31.0-37.0); MCV 91.7 fL (80.0-100.0); Mean Platelet Volume 8.1; Platelet Count 257 k/uL (150-450); RBC 4.16 m/uL (3.80-5.40); RDW 13.1 % (11.5-15.5)
[2024-03-16] MEDS: CALCIUM CARB-VIT D 500 MG-5 MCG TAB PO SCH (08:24)
--- NOTE | 2024-03-16 08:57 | P.PN ---
Subjective Progress Note Date: 03/15/24 Patient was seen for a follow-up. Patient's was also present by the bedside. Patient has received 3 doses of high-dose steroids Solu-Medrol 1 g IVPB daily. Patient is doing much better. Patient's mentioned that prior to this current relapse, patient was able to walk on her own without any assistive device. She would hang onto her only when going long distance. However she is not able to walk without assistance at this time, which is worse as compared to her baseline. Since she started steroids, she can get up to the walker and walk. However she is a fall risk. She has improved, but not back to baseline yet. Patient is tolerating steroids well. Objective - Vital Signs Vital signs: Vital Signs Temp 98.5 F 03/15/24 15:58 Pulse 62 03/15/24 15:58 Resp 17 03/15/24 15:58 BP 103/52 03/15/24 15:58 Pulse Ox 94 L 03/15/24 15:58 FiO2 Intake & Output 03/14/24 03/15/24 03/15/24 18:59 06:59 18:59 Intake Total 614 20 496 Balance 614 20 496 Weight 63.5 kg Intake: IV 20 20 20 Invasive Line 1 20 20 20 Oral 594 476 Other: Voiding Method Toilet Toilet Toilet # Voids 2 1 - Exam Patient's mental status, speech and language functions are normal. Cranial nerves again significant for mild left facial asymmetry. Muscle strength revealed left pronator drift about 5 to 10 degree. Strength is normal in the arms and legs distally and proximally. Patient is spastic on the left. Patient continues to have significant ataxia for [id number] and [id number] testing, mainly on the left but slightly on the right. Sensations are equal. - Labs CBC & Chem 7: 03/16/24 06:36 03/15/24 06:52 Labs: Abnormal Lab Results - Last 24 Hours (Table) 03/14/24 03/15/24 03/15/24 Range/Units 20:09 06:04 06:52 WBC 16.8 H (3.8-10.6) k/uL Glucose (74-99) mg/dL POC Glucose (mg/dL) 208 H 168 H (70-110) mg/dL 03/15/24 03/15/24 03/15/24 Range/Units 06:52 11:49 16:27 WBC (3.8-10.6) k/uL Glucose 148 H (74-99) mg/dL POC Glucose (mg/dL) 139 H 334 H (70-110) mg/dL Assessment and Plan Assessment: * Probable MS exacerbation. Patient has developed worsening of her left-sided weakness, balance. No obvious infection identified that could produce recrudescence. * Multiple sclerosis * Atypical chest pain * Hypertension * Diabetes * Hyperlipidemia Plan: * Patient probably has developed acute MS exacerbation. Patient had an MRI of the brain performed at her neurologist office couple months ago, therefore we will not repeat it at this time. * Start Solu-Medrol 1 g IVPB daily for 5 days. Patient has received 3/5 doses of Solu-Medrol. She is doing better. * Patient on Protonix for prophylaxis * DVT prophylaxis: Lovenox 40 mg subcu daily * B12 751, folate 9.5, TSH 0.397, free T41.47. We will defer to IM to address abnormal thyroid functions. * Continue Lipitor 10 mg and aspirin 81 mg. * Patient had 2D echo, which revealed normal biventricular systolic function. No significant valvular abnormalities. EF is 55 to 60%. Normal atrial size. * PT OT.
[2024-03-16 09:59] LABS: African American GFR (CKD) >90 (>60 ml/min/1.73 sqM); Anion Gap 4 mmol/L; Blood Urea Nitrogen 15 mg/dL (7-17); Calcium 9.5 mg/dL (8.4-10.2); Carbon Dioxide 29 mmol/L (22-30); Chloride 106 mmol/L (98-107); Glucose 146 mg/dL (74-99); Non-African American GFR(CKD) >90 (>60 ml/min/1.73 sqM); Potassium 3.8 mmol/L (3.5-5.1); Sodium 139 mmol/L (137-145)
[2024-03-16 11:37] LABS: Glucose,Whole Blood 278 mg/dL (70-110)
--- NOTE | 2024-03-16 13:38 | P.PN ---
Subjective Progress Note Date: 03/16/24 Principal diagnosis: Hospital course: Patient is a 64-year-old female with past medical history of diabetes, GERD, multiple sclerosis who presented to the ED for chest tightness and left-sided weakness. She has been feeling weak since the past 1 week. The weakness is mainly on the entire left side of her body and she has not been able to get up on her own. Yesterday she started having chest tightness and heaviness with no radiation. She mentions experiencing similar symptoms a year ago when she had a flareup of her multiple sclerosis. She mentions getting diagnosed with multiple sclerosis 4 years ago and has since had some weakness on the left side of her body. She also gets infusions every 6 months for multiple sclerosis and the last one was 2 months ago. Currently she is experiencing tremors in her left arm and leg as well as numbness and tingling sensation over the entire left side of her body and she isn't able to move out of bed or ambulate on her own. Denies fever, chills, cough, palpitations, abdominal pain, nausea, vomiting, hematuria, hematochezia, melena. She uses a walker at home to ambulate. ED documentation reviewed in the ED she was treated with aspirin 324 mg, magnesium oxide 400 mg, Solu-Medrol, nitroglycerin sublingual tablets. Vitals on admission T 97.8 F, P 65 bpm, RR 16, BP 146/86, O2 sat 99% on room air EKG independently interpreted as sinus rhythm, poor R wave progression, rate 64 bpm, QTc 391 ms Chest x-ray shows no acute cardiopulmonary disease or process Echocardiogram shows EF 55 to 60%, normal biventricular systolic function, no significant valvular abnormalities, no evidence of pericardial effusion, unable to determine pulmonary artery systolic pressure Labs on admission showed WBC 7.3, hemoglobin 13.8, PT 9.8, sodium 139, potassium 4.1, BUN 5, creatinine 0.44, magnesium 1.4 Troponin I <0.012 x 3, D-dimer 0.54 Lipid panel shows triglycerides 49.2, cholesterol 205, LDL 107.9, VLDL 9.84, HDL 87.30 UA unremarkable 03/14/24: Patient seen and examined at bedside today. No acute events overnight. Labs today show WBC 11.4, sodium 140, glucose 305. Patient had an MRI of the brain performed at her neurologist office couple months ago. TSH is 0.397, free T4 is 1.47, and A1c is 6.2. 03/15/24: Patient seen and evaluated today. No acute events overnight. No new complaints today. Labs today show WBC 16.8, glucose 148. Vitamin B12 is 751 and folate is 9.50. 03/16/24: Patient seen and examined today. No acute events overnight. Today is day 4 of IV solumedrol. Patient states feeling better today. Labs today show WBC 15.0, glucose 153. Review of systems: Pertinent positives and negatives as discussed in HPI, a complete review of systems was performed and all other systems are negative. Vitals: Signs Reviewed Physical examination: General: nontoxic, no distress, appears at stated age Derm: warm, dry, intact Head: atraumatic, normocephalic, symmetric Eyes: EOMI, anicteric sclera Mouth: no lip lesion, mucus membranes moist Cardiovascular: S1 S2 reg, no murmur Lungs: CTA bilateral, no rhonchi, no rales, no accessory muscle use Abdominal: soft, non-tender to palpataion Extremities: No cyanosis, clubbing, or pedal edema. Neuro: Alert, Oriented, strength 5/5 RUE and RLE, 4/5 in LUE and LLE, intention tremors, clumsy movements, marked dysmetria in LUE and LLE on finger to nose test Psych: well appearing, appropriate affect Assessment/Plan: Patient is a 64-year-old female with past medical history of diabetes, GERD, multiple sclerosis who presented to the ED for chest pain with left-sided weakness and has been admitted for acute multiple sclerosis exacerbation and is being treated with IV Solu-Medrol. #. Acute MS exacerbation Continue Baclofen 10 mg PO BID Continue Solumedrol 1 g IVPB daily for 5 days, Today is day 4/5 Continue Oscal 500 mg-5 mcg 1 each PO BID with meals Neurology is following PT recommended home with spouse and home care PT #. Atypical chest discomfort, r/o ACS ACS is ruled out Troponin I<0.012 x 3 and D-dimer 0.54 Echocardiogram shows 55 to 60% EF, normal biventricular systolic function Lipid panel shows triglycerides 49.2, cholesterol 205, LDL 107.9, VLDL 9.84, HDL 87.30 Continue aspirin 81 mg p.o. daily and atorvastatin 10 mg p.o. at bedtime and nit roglycerin sublingual tablets 0.4 mg Q5M as needed Continue telemetry monitoring #. Sick euthyroid TSH 0.397, T4 1.47 Repeat TSH and T4 in 4 weeks outpatient #. Hypertension Continue losartan 12.5 mg p.o. daily #. Non insulin dependent diabetes mellitus A1c 6.2 Continue Levemir 5 units SQ HS Continue home meds Metformin 1000 mg p.o. twice daily with meals and Linagliptin 5 mg p.o. daily Continue Low dose Insulin sliding scale with ACHS blood glucose monitoring #. Hypomagnesemia, resolved F: None E: Replete as required N: Heart healthy diet A: Bedrest, advance activity as tolerated DVT prophylaxis: Enoxaparin 40 mg SQ daily and SCD GI prophylaxis: Pantoprazole 40 mg PO daily I have seen and examined this patient with my resident , discussed the same with the resident/LUCILLE, and agree with the dictator's assessment and plan as written Dr. Hugo guerrero Objective - Vital Signs Vital signs: Vital Signs Temp 98.3 F 03/16/24 04:00 Pulse 54 L 03/16/24 04:00 Resp 17 03/16/24 04:00 BP 129/61 03/16/24 04:00 Pulse Ox 96 03/16/24 04:00 FiO2 Intake & Output 03/15/24 03/16/24 03/16/24 18:59 06:59 18:59 Intake Total 496 20 Balance 496 20 Weight 61 kg Intake: IV 20 20 Invasive Line 1 20 20 Oral 476 Other: Voiding Method Toilet Toilet # Voids 0 - Labs CBC & Chem 7: 03/17/24 07:05 03/16/24 06:36 Labs: Abnormal Lab Results - Last 24 Hours (Table) 03/15/24 03/15/24 03/15/24 Range/Units 06:52 11:49 16:27 WBC (3.8-10.6) k/uL Glucose 148 H (74-99) mg/dL POC Glucose (mg/dL) 139 H 334 H (70-110) mg/dL 03/15/24 03/16/24 03/16/24 Range/Units 20:15 06:01 06:36 WBC 15.0 H (3.8-10.6) k/uL Glucose (74-99) mg/dL POC Glucose (mg/dL) 293 H 153 H (70-110) mg/dL
[2024-03-16 16:28] LABS: Glucose,Whole Blood 389 mg/dL (70-110)
[2024-03-16 20:50] LABS: Glucose,Whole Blood 237 mg/dL (70-110)
[2024-03-16 22:00] VITALS: TEMP 97.8
--- NOTE | 2024-03-17 01:05 | P.PN ---
Subjective Progress Note Date: 03/16/24 Patient was seen for a follow-up. Patient has received 4 doses of high-dose steroids Solu-Medrol 1 g IVPB daily. Patient is doing much better. Patient's mentioned that prior to this current relapse, patient was able to walk on her own without any assistive device. She would hang onto her hus band only when going long distance. However she is not able to walk without assistance at this time, which is worse as compared to her baseline. Since she started steroids, she can get up to the walker and walk. However she is a fall risk. She has improved, but not back to baseline yet. Patient is tolerating steroids well. Objective - Vital Signs Vital signs: Vital Signs Temp 98.5 F 03/16/24 15:24 Pulse 62 03/16/24 15:24 Resp 18 03/16/24 15:24 BP 116/59 03/16/24 15:24 Pulse Ox 97 03/16/24 15:24 FiO2 Intake & Output 03/15/24 03/16/24 03/16/24 18:59 06:59 18:59 Intake Total 496 20 594 Balance 496 20 594 Weight 61 kg Intake: IV 20 20 Invasive Line 1 20 20 Oral 476 594 Other: Voiding Method Toilet Toilet Toilet # Voids 0 2 - Exam Patient's mental status, speech and language functions are normal. Cranial nerves again significant for mild left facial asymmetry. Muscle strength revealed left pronator drift about 5 to 10 degree. Strength is normal in the arms and legs distally and proximally. Patient is spastic on the left. Patient continues to have significant ataxia for pldwse-dg-qvan and nibq-vd-bbfm testing, mainly on the left but slightly on the right. Sensations are equal. - Labs CBC & Chem 7: 03/16/24 06:36 03/16/24 06:36 Labs: Abnormal Lab Results - Last 24 Hours (Table) 03/15/24 03/16/24 03/16/24 Range/Units 20:15 06:01 06:36 WBC 15.0 H (3.8-10.6) k/uL Glucose (74-99) mg/dL POC Glucose (mg/dL) 293 H 153 H (70-110) mg/dL 11/15/24 11/15/24 11/15/24 Range/Units 06:36 11:36 16:27 WBC (3.8-10.6) k/uL Glucose 146 H (74-99) mg/dL POC Glucose (mg/dL) 278 H 389 H (70-110) mg/dL Assessment and Plan Assessment: * Probable MS exacerbation. Patient has developed worsening of her left-sided weakness, balance. No obvious infection identified that could produce recrudescence. * Multiple sclerosis * Atypical chest pain * Hypertension * Diabetes * Hyperlipidemia Plan: * Patient probably has developed acute MS exacerbation. Patient had an MRI of the brain performed at her neurologist office couple months ago, therefore we will not repeat it at this time. * Start Solu-Medrol 1 g IVPB daily for 5 days. Patient has received 4/5 doses of Solu-Medrol. She is doing better. * Patient to receive 5/5 dose of Solu-Medrol tomorrow on Tuesday, then will be clear for discharge. Patient does not want to be continued on oral tapering dose of prednisone. * Patient on Protonix for prophylaxis * DVT prophylaxis: Lovenox 40 mg subcu daily * B12 751, folate 9.5, TSH 0.397, free T41.47. We will defer to IM to address abnormal thyroid functions. * Continue Lipitor 10 mg and aspirin 81 mg. * Patient had 2D echo, which revealed normal biventricular systolic function. No significant valvular abnormalities. EF is 55 to 60%. Normal atrial size. * PT OT. * Clear for discharge in the morning after completes her 5/5 dose of Solu- Medrol. * Patient to follow-up with her neurologist.
[2024-03-17 06:13] LABS: Glucose,Whole Blood 137 mg/dL (70-110)
[2024-03-17 07:38] LABS: HCT 42.5 % (34.0-46.0); HGB 13.5 gm/dL (11.4-16.0); MCH 29.2 pg (25.0-35.0); MCHC 31.7 g/dL (31.0-37.0); Mean Platelet Volume 7.8; Platelet Count 306 k/uL (150-450); RBC 4.62 m/uL (3.80-5.40); RDW 12.9 % (11.5-15.5); WBC 16.2 k/uL (3.8-10.6)
[2024-03-17 08:46] VITALS: RESP 16
[2024-03-17 11:39] VITALS: BP 127/66; PULSE 60
[2024-03-17 11:56] LABS: Glucose,Whole Blood 137 mg/dL (70-110)
--- NOTE | 2024-03-17 12:32 | P.DS ---
Providers Date of admission: 03/12/24 15:18 Expected date of discharge: 03/17/24 Attending physician: Brandon Austin Consults: 03/12/24 15:16 Consult Physician Routine Consulting Provider: Bebeto Loera Consult Reason/Comments: ms Do you want consulting provider notified?: Yes Primary care physician: Yuliana Moore Hospital Course: Discharge diagnosis: Acute multiple sclerosis exacerbation Atypical chest discomfort, rule out ACS Sick euthyroid Hypertension Anc-ycdwble-phtaztubv diabetes mellitus Hypomagnesemia, resolved Hospital Course: Patient is a 64-year-old female with past medical history of diabetes, GERD, multiple sclerosis who presented to the ED for chest tightness and left-sided weakness. She has been feeling weak since the past 1 week. The weakness is mainly on the entire left side of her body and she has not been able to get up on her own. Yesterday she started having chest tightness and heaviness with no radiation. She mentions experiencing similar symptoms a year ago when she had a flareup of her multiple sclerosis. She mentions getting diagnosed with multiple sclerosis 4 years ago and has since had some weakness on the left side of her body. She also gets infusions every 6 months for multiple sclerosis and the last one was 2 months ago. Currently she is experiencing tremors in her left arm and leg as well as numbness and tingling sensation over the entire left side of her body and she isn't able to move out of bed or ambulate on her own. Denies fever, chills, cough, palpitations, abdominal pain, nausea, vomiting, hematuria, hematochezia, melena. She uses a walker at home to ambulate. Vitals on admission T 97.8 F, P 65 bpm, RR 16, BP 146/86, O2 sat 99% on room air. EKG independently interpreted as sinus rhythm, poor R wave progression, rate 64 bpm, QTc 391 ms. Chest x-ray shows no acute cardiopulmonary disease or process. Labs on admission showed WBC 7.3, hemoglobin 13.8, PT 9.8, sodium 139, potassium 4.1, BUN 5, creatinine 0.44, magnesium 1.4. Troponin I <0.012 x 3, D-dimer 0.54. Lipid panel shows triglycerides 49.2, cholesterol 205, LDL 107.9, VLDL 9.84, HDL 87.30. UA unremarkable. In the ED she was treated with aspirin 324 mg, magnesium oxide 400 mg, Solu-Medrol, nitroglycerin sublingual tablets. 03/13/24: Echocardiogram shows EF 55 to 60%, normal biventricular systolic function, no significant valvular abnormalities, no evidence of pericardial effusion, unable to determine pulmonary artery systolic pressure. 03/14/24: Patient seen and examined at bedside today. No acute events overnight. Labs today show WBC 11.4, sodium 140, glucose 305. Patient had an MRI of the brain performed at her neurologist office couple months ago. TSH is 0.397, free T4 is 1.47, and A1c is 6.2. 03/15/24: Patient seen and evaluated today. No acute events overnight. No new complaints today. Labs today show WBC 16.8, glucose 148. Vitamin B12 is 751 and folate is 9.50. 03/16/24: Patient seen and examined today. No acute events overnight. Today is day 4 of IV solumedrol. Patient states feeling better today. Labs today show WBC 15.0, glucose 153. 03/17/24: Patient examined at bedside today. No acute events overnight. Patient mentions feeling a lot better today. Today is day 5 of IV Solu-Medrol. Labs today show WBC 16.2, glucose 137. Patient seen at bedside today and is feeling good and excited about discharge. Patient will be discharged today and is given a script for steroid taper and Oscal as well as a handout for multiple sclerosis. Patient is advised to follow-up with PCP in 1-2 days and her neurologist in 1 week. Vital signs are reviewed and stable General: nontoxic, no distress, appears at stated age Derm: warm, dry, intact Head: atraumatic, normocephalic, symmetric Eyes: EOMI, anicteric sclera Mouth: no lip lesion, mucus membranes moist Cardiovascular: S1 S2 reg, no murmur Lungs: CTA bilateral, no rhonchi, no rales, no accessory muscle use Abdominal: soft, non-tender to palpataion Extremities: No cyanosis, clubbing, or pedal edema. Neuro: Alert, Oriented, strength 5/5 RUE and RLE, 4/5 in LUE and LLE, intention tremors, clumsy movements, marked dysmetria in LUE and LLE on finger to nose test Psych: well appearing, appropriate affect A total of 30 minutes of time were spent preparing this complex discharge summary. Patient was discharged on 03/17/24 at 1300. Attestation I have seen and examined this patient with my resident , discussed the same with the resident/LUCILLE, and agree with the dictator's assessment and plan as written Dr. Hugo guerrero Patient Condition at Discharge: Stable Plan - Discharge Summary Discharge Rx Participant: No New Discharge Prescriptions: New predniSONE 10 mg PO DAILY 12 Days #57 tab Calcium Carb-Vit D 500Mg-5Mcg [Oscal 500+D 5 Mcg (200 Iu)] 1 each PO BID 30 Days #60 tablet Continue sitaGLIPtin PHOSPHATE [Januvia] 100 mg PO DAILY Omeprazole 20 mg PO DAILY Vitamin E (Dl,Tocopheryl Acet) [Vitamin E (400 Iu = 180 mg)] 400 unit PO DAILY Cyanocobalamin [Vitamin B-12] 1,000 mcg PO DAILY Baclofen 10 mg PO BID Losartan [Cozaar] 12.5 mg PO DAILY metFORMIN HCL 1,000 mg PO BID Aspirin EC [Ecotrin Low Dose] 81 mg PO DAILY Ascorbic Acid [Vitamin C] 1,000 mg PO BID Nitroglycerin Sl Tabs [Nitrostat] 0.4 mg SUBLINGUAL Q5M PRN #30 tab PRN Reason: Chest Pain Atorvastatin [Lipitor] 10 mg PO HS Cholecalciferol (Vitamin D3) [Vitamin D3 (50 Mcg = 2000 Iu)] 50 mcg PO DAILY Discharge Medication List Omeprazole 20 mg PO DAILY 10/04/13 [History] sitaGLIPtin PHOSPHATE [Januvia] 100 mg PO DAILY 10/04/13 [History] Ascorbic Acid [Vitamin C] 1,000 mg PO BID 07/25/22 [History] Aspirin EC [Ecotrin Low Dose] 81 mg PO DAILY 07/25/22 [History] Baclofen 10 mg PO BID 07/25/22 [History] Cyanocobalamin [Vitamin B-12] 1,000 mcg PO DAILY 07/25/22 [History] Vitamin E (Dl,Tocopheryl Acet) [Vitamin E (400 Iu = 180 mg)] 400 unit PO DAILY 07/25/22 [History] Nitroglycerin Sl Tabs [Nitrostat] 0.4 mg SUBLINGUAL Q5M PRN #30 tab 07/26/22 [Rx] Losartan [Cozaar] 12.5 mg PO DAILY 09/14/23 [History] Atorvastatin [Lipitor] 10 mg PO HS 03/12/24 [History] Cholecalciferol (Vitamin D3) [Vitamin D3 (50 Mcg = 2000 Iu)] 50 mcg PO DAILY 03/12/24 [History] metFORMIN HCL 1,000 mg PO BID 03/12/24 [History] Calcium Carb-Vit D 500Mg-5Mcg [Oscal 500+D 5 Mcg (200 Iu)] 1 each PO BID 30 Days #60 tablet 03/17/24 [Rx] predniSONE 10 mg PO DAILY 12 Days #57 tab 03/17/24 [Rx] Follow up Appointment(s)/Referral(s): Yuliana Moore DO [Primary Care Provider] - 1-2 days (please call and make appointment ) Patient Instructions/Handouts: Chest Pain (DC), Multiple Sclerosis (DC) Discharge Disposition: HOME SELF-CARE
== END 2024-03-17 13:06 | disposition home or self-care (01) | DRG 60 ==
LOC: EC 13:21 → 3SCARD 15:18
PROVIDERS: ADMIT Hospitalist; ATTEND Hospitalist
DX: G35 Multiple sclerosis (principal); G81.94 Hemiplegia, unspecified affecting left nondominant side; E07.81 Sick-euthyroid syndrome; I10 Essential (primary) hypertension; R25.1 Tremor, unspecified; E83.42 Hypomagnesemia; E78.5 Hyperlipidemia, unspecified; Z79.84 Long term (current) use of oral hypoglycemic drugs; Z79.82 Long term (current) use of aspirin; Z79.899 Other long term (current) drug therapy
CPT/HCPCS: 36415; 71046; 80048; 80053; 80061; 81003; 82607; 82746; 83036; 83735; 84439; 84443; 84484; 85025; 85027; 85379; 85610; 85730; 93005; 93306; 94760; 96365; 99285

== ENCOUNTER 2024-10-07 09:13 | Emergency (ER) | payer BC, MEDICARE ==
[2024-10-07 09:17] VITALS: RESP 20
--- NOTE | 2024-10-07 09:32 | ED ---
General Adult HPI - General Chief complaint: Fall Stated complaint: Back Injury Time Seen by Provider: 10/07/24 09:21 Source: patient, family, RN notes reviewed Mode of arrival: wheelchair Limitations: no limitations - History of Present Illness Initial comments: Patient is a 64-year-old female present to the emergency department with concern with back pain. Patient was doing laundry yesterday. Patient was pulling on a laundry basket when she accidentally fell down. Patient landed on her bottom however has discomfort of her lower back. Patient lately struck her head on the wall. No loss of consciousness, no weakness, no confusion. No headache. No history of chronic back problems. No weakness or loss of sensation. No incontinence or retention of bowel or bladder. Discomfort is lower back - Related Data Home Medications Medication Instructions Recorded Confirmed Omeprazole 20 mg PO DAILY 10/04/13 03/12/24 sitaGLIPtin PHOSPHATE [Januvia] 100 mg PO DAILY 10/04/13 03/12/24 Ascorbic Acid [Vitamin C] 1,000 mg PO BID 07/25/22 03/12/24 Aspirin EC [Ecotrin Low Dose] 81 mg PO DAILY 07/25/22 03/12/24 Baclofen 10 mg PO BID 07/25/22 03/12/24 Cyanocobalamin [Vitamin B-12] 1,000 mcg PO DAILY 07/25/22 03/12/24 Vitamin E (Dl,Tocopheryl Acet) 400 unit PO DAILY 07/25/22 03/12/24 [Vitamin E (400 Iu = 180 mg)] Losartan [Cozaar] 12.5 mg PO DAILY 09/14/23 03/12/24 Atorvastatin [Lipitor] 10 mg PO HS 03/12/24 03/12/24 Cholecalciferol (Vitamin D3) 50 mcg PO DAILY 03/12/24 03/12/24 [Vitamin D3 (50 Mcg = 2000 Iu)] metFORMIN HCL 1,000 mg PO BID 03/12/24 03/12/24 Previous Rx's Medication Instructions Recorded Nitroglycerin Sl Tabs [Nitrostat] 0.4 mg SUBLINGUAL Q5M PRN #30 tab 07/26/22 Calcium Carb-Vit D 500Mg-5Mcg 1 each PO BID 30 Days #60 tablet 03/17/24 [Oscal 500+D 5 Mcg (200 Iu)] predniSONE 10 mg PO DAILY 12 Days #57 tab 03/17/24 Ibuprofen [Motrin] 600 mg PO Q6HR PRN #20 tab 10/07/24 Allergies Allergy/AdvReac Type Severity Reaction Status Date / Time levofloxacin [From Levaquin] Allergy Rash/Hives Verified 10/07/24 09:17 Penicillins Allergy Rash/Hives Verified 10/07/24 09:17 Sulfa (Sulfonamide Allergy Rash/Hives Verified 10/07/24 09:17 Antibiotics) Review of Systems ROS Statement: Those systems with pertinent positive or pertinent negative responses have been documented in the HPI. ROS Other: All systems not noted in ROS Statement are negative. Constitutional: Denies: fever Eyes: Denies: eye pain ENT: Denies: ear pain Cardiovascular: Denies: chest pain Gastrointestinal: Denies: abdominal pain Musculoskeletal: Reports: as per HPI, back pain Neurological: Reports: as per HPI. Denies: headache, weakness, confusion Past Medical History Past Medical History: Diabetes Mellitus, GERD/Reflux, Neurologic Disorder Additional Past Medical History / Comment(s): MS, Left sided weakness History of Any Multi-Drug Resistant Organisms: None Reported Past Surgical History: Cholecystectomy, Heart Catheterization, Tonsillectomy, Tubal Ligation, Uterine Ablation Additional Past Surgical History / Comment(s): Cardiac cath 12/2012. 2- D&C Past Anesthesia/Blood Transfusion Reactions: Postoperative Nausea & Vomiting (PONV) Past Psychological History: No Psychological Hx Reported Smoking Status: Never smoker - Past Family History Mother Family Medical History: Cancer Additional Family Medical History / Comment(s): Lung General Exam Limitations: no limitations General appearance: alert, in no apparent distress Head exam: Present: normocephalic Eye exam: Present: normal appearance, PERRL, EOMI Neck exam: Present: normal inspection. Absent: tenderness Respiratory exam: Present: normal lung sounds bilaterally Cardiovascular Exam: Present: regular rate, normal rhythm GI/Abdominal exam: Present: soft. Absent: tenderness, pulsatile mass Back exam: Present: tenderness (Moderate tenderness L3-L4 region) Neurological exam: Present: alert, oriented X3, CN II-XII intact. Absent: motor sensory deficit Expanded Neurological exam: Present: protecting the airway Speech: Present: fluid speech Cranial nerves: EOM's Intact: Normal Motor strength exam: RUE: 5, LUE: 5, RLE: 5, LLE: 5 Eye Response: (4) open spontaneously Motor Response: (6) obeys commands Verbal Response: (5) oriented Psychiatric exam: Present: normal affect, normal mood Skin exam: Present: normal color Course Vital Signs 10/07/24 09:15 Temperature 98.1 F Pulse Rate 79 Respiratory 20 Rate Blood Pressure 114/68 O2 Sat by Pulse 96 Oximetry Medical Decision Making - Medical Decision Making Was pt. sent in by a medical professional or institution (, [facility]ARON, NEEDLE LOOM [employer]ER, urgent care, hospital, or long-term...) When possible be specific @ -No Did you speak to anyone other than the patient for history (EMS, parent, family, police, friend...)? What history was obtained from this source @ -No Did you review nursing and triage notes (agree or disagree)? Why? @ -I reviewed and agree with nursing and triage notes Were old charts reviewed (outside hosp., previous admission, EMS record, old EKG, old radiological studies, urgent care reports/EKG's, long-term records)? Report findings @ -No old charts were reviewed Differential Diagnosis (chest pain, altered mental status, abdominal pain women, abdominal pain men, vaginal bleeding, weakness, fever, dyspnea, syncope, headache, dizziness, GI bleed, back pain, seizure, CVA, palpatations, mental health, musculoskeletal)? @ -Differential Back Pain: Strain, zoster, cauda equina syndrome, epidural abscess, vertebral osteomyelitis, discitis, fracture, subluxation, disc herniation, DJD, spinal stenosis, dissection, AAA, pancreatitis, peptic ulcer disease, pyelonephritis, kidney stone, this is not meant to be an all-inclusive list. EKG interpreted by me (3pts min.). @ -As above X-rays interpreted by me (1pt min.). @ -X-rays interpreted by myself without acute traumatic injury CT interpreted by me (1pt min.). @ -None done U/S interpreted by me (1pt. min.). @ -None done What testing was considered but not performed or refused? (CT, X-rays, U/S, labs)? Why? @ -None What meds were considered but not given or refused? Why? @ -None Did you discuss the management of the patient with other professionals (professionals i.e. , PA, NEEDLE LOOM WEAVER, lab, RT, psych nurse, social media designer, pie topper, teacher, corporate ethics officer, mattress spring encaser)? Give summary @ -No Was smoking cessation discussed for >3mins.? @ -No Was critical care preformed (if so, how long)? @ -No Were there social determinants of health that impacted care today? How? (Homelessness, low income, unemployed, alcoholism, drug addiction, transportation, low edu. Level, literacy, decrease access to med. care, fci, rehab)? @ -No Was there de-escalation of care discussed even if they declined (Discuss DNR or withdrawal of care, Hospice)? DNR status @ -No What co-morbidities impacted this encounter? (DM, HTN, Smoking, COPD, CAD, Cancer, CVA, ARF, Chemo, Hep., AIDS, mental health diagnosis, sleep apnea, morbid obesity)? @ -History of MS Was patient admitted / discharged? Hospital course, mention meds given and route, prescriptions, significant lab abnormalities, going to OR and other pertinent info. @ -Patient presents with low back discomfort following fall from yesterday. No red flags. X-rays unremarkable. Patient will be discharged with Motrin 600. Considered Flexeril however patient is already on baclofen. Patient reevaluated. Patient and family updated Undiagnosed new problem with uncertain prognosis? @ -No Drug Therapy requiring intensive monitoring for toxicity (Heparin, Nitro, Insulin, Cardizem)? @ -No Were any procedures done? @ -No Diagnosis/symptom? @ -Low back pain Acute, or Chronic, or Acute on Chronic? @ -Acute Uncomplicated (without systemic symptoms) or Complicated (systemic symptoms)? @ -Default Side effects of treatment? @ -No Exacerbation, Progression, or Severe Exacerbation? @ -No Poses a threat to life or bodily function? How? (Chest pain, [place], [place], pneumonia, PE, COPD, DKA, ARF, appy, cholecystitis, CVA, Diverticulitis, Homicidal, Suicidal, threat to staff... and all critical care pts) @ -No Disposition Clinical Impression: Low back pain, Fall Disposition: HOME SELF-CARE Condition: Stable Instructions (If sedation given, give patient instructions): Back Pain (ED) Additional Instructions: Prescription sent to pharmacy. Please do follow-up with your primary care physician in the next day or 2 for recheck. Return for weakness, loss of sensation, loss of control of bowel or bladder, worsening or change in symptoms or other concerns. Prescriptions: Ibuprofen [Motrin] 600 mg PO Q6HR PRN #20 tab PRN Reason: Pain Is patient prescribed a controlled substance at d/c from ED?: No Referrals: Yuliana Moore DO [Primary Care Provider] - 1-2 days Time of Disposition: 10:21
[2024-10-07] MEDS: KETOROLAC 15 MG/ML 1 ML VIAL IM STA (09:36)
[2024-10-07] MEDS: MORPHINE SULFATE 4 MG/ML SYRINGE IM STA (09:36)
--- NOTE | 2024-10-07 10:11 | XR ---
EXAMINATION TYPE: XR lumbar spine 2 or 3V DATE OF EXAM: 10/07/2024 10:00 AM COMPARISON: 01/07/2013 CLINICAL INDICATION: Female, 64 years old with history of fall, pain TECHNIQUE: 3 view(s) obtained. FINDINGS: There are 5 lumbar vertebral bodies. Pedicles are intact. Disc heights are preserved. Vertebral body heights are preserved. Spondylosis is present. No spondylolisthesis is evident. Findings are stable. IMPRESSION: 1. No acute osseous abnormality lumbar spine [facility], , 10/07/2024 10:09 AM
[2024-10-07] MEDS: HYDROcodone/APAP 5-325MG 1 EACH TAB PO STA (10:28)
[2024-10-07 10:32] VITALS: BP 116/72; PULSE 82; TEMP 98
== END 2024-10-07 10:49 | disposition home or self-care (01) ==
LOC: EC 09:13
DX: M54.50 Low back pain, unspecified (principal); Z88.2 Allergy status to sulfonamides; Z88.0 Allergy status to penicillin; Z88.1 Allergy status to other antibiotic agents; W18.30XA Fall on same level, unspecified, initial encounter
CPT/HCPCS: 72100; 99283; 96372 ×2; J2270; J1885